=== PATIENT | male | born 1985 | race Caucasian/White ===

== ENCOUNTER 2017-11-20 19:12 | Emergency (ER) | payer OTHER ==
[~2017-11-20] VITALS: Ht 177.8 cm; Wt 120.2 kg
[~2017-11-20 19:12] MED LIST: AUGMENTIN 875 M1 TAB PO; BACTROBAN CREAM15 GM PO; NKHM; PRELONE5 MG/5 ML PO; ZANTAC150 MG PO; ZOFRAN4 MG PO
[2017-11-20 20:07] LABS: BASO % 0.2 % (0.0-1.0); EOS # 0.2 10*3/uL (0.0-0.4); EOS % 1.3 % (1.0-4.0); LYMPH % 16.6 % (27.0-41.0); MEAN CELL VOLUME 84.8 fl (80.0-94.0); MEAN CORPUSCULAR HGB 28.9 pg (27.0-31.0); MEAN PLATELET VOLUME 10.3 fl (9.6-12.3); MONO # 0.9 10*3/uL (0.1-1.0); MONO % 7.3 % (3.0-9.0); NEUT # 8.9 10*3/uL (2.3-7.9); NEUT % 74.2 % (47.0-73.0); PLATELET COUNT AUTOMATED 189 10*3/uL (130-400); RED BLOOD COUNT 5.54 10*6/uL (4.50-5.90); RED CELL DISTRI WIDTH 13.1 % (0-14.5)
[2017-11-20 20:16] LABS: BILIRUBIN NEGATIVE (NEGATIVE); BLOOD 3+ (NEGATIVE); CLARITY SL CLOUDY (CLEAR); COLOR YELLOW (YELLOW); GLUCOSE NEGATIVE (NEGATIVE); KETONE NEGATIVE (NEGATIVE); LEUKO ESTERASE NEGATIVE (NEGATIVE); NITRITE NEGATIVE (NEGATIVE); PH 5.5 (5.0-9.0); SPECIFIC GRAVITY >= 1.030 (1.005-1.030)
[2017-11-20 20:23] LABS: MUCOUS 1+; RBC 41-50 rbc/hpf (0-2)
[2017-11-20 20:23] LABS: ALBUMIN 4.1 gm/dl (3.1-4.5); ALKALINE PHOSPHATASE 90 U/L (45-117); BUN 21 mg/dl (7-24); CHLORIDE 106 mmol/L (98-107); CREATININE 1.37 mg/dL (0.70-1.30); POTASSIUM 3.3 mmol/L (3.5-5.1); SGOT/AST 17 IU/L (3-35); SGPT/ALT 25 U/L (12-78); SODIUM 142 mmol/L (136-145); TOTAL PROTEIN 7.9 gm/dL (6.4-8.2)
[2017-11-20] MEDS ORDERED: Zofran4 MG SL (23:06)
[2017-11-20] MEDS ORDERED: VICODIN 5-3001 EACH PO (23:06)
[2017-11-20] MEDS ORDERED: FLOMAX0.4 MG PO (23:06)
== END 2017-11-20 23:13 | disposition home or self-care (01) ==
LOC: ED 19:12
PROVIDERS: Nurse Practitioner Family
DX: N20.0 Calculus of kidney (principal); N23 Unspecified renal colic; Z90.89 Acquired absence of other organs; Z91.018 Allergy to other foods

== ENCOUNTER 2018-01-03 01:03 | Emergency (ER) | payer OTHER ==
[~2018-01-03] VITALS: Ht 177.8 cm; Wt 116.1 kg
[~2018-01-03 01:03] MED LIST changes: +FLOMAX0.4 MG PO; +VICODIN 5-3001 EACH PO; +Zofran4 MG SL
[2018-01-03 01:21] LABS: HEMATOCRIT 48.5 % (42.0-52.0); HEMOGLOBIN 17.1 g/dl (14.0-18.0); MEAN CELL VOLUME 82.9 fl (80.0-94.0); MEAN CORPUSCULAR HGB 29.2 pg (27.0-31.0); MEAN CORPUSCULAR HGB CONC 35.3 g/dl (33.0-37.0); MEAN PLATELET VOLUME 10.2 fl (9.6-12.3); PLATELET COUNT AUTOMATED 241 10*3/uL (130-400); RED BLOOD COUNT 5.85 10*6/uL (4.50-5.90); RED CELL DISTRI WIDTH 12.8 % (0-14.5); WHITE BLOOD COUNT 16.6 10*3/uL (4.8-10.8)
[2018-01-03 01:35] LABS: ALBUMIN 4.3 gm/dl (3.1-4.5); ALKALINE PHOSPHATASE 90 U/L (45-117); BUN 17 mg/dl (7-24); CHLORIDE 109 mmol/L (98-107); CREATININE 1.19 mg/dL (0.70-1.30); POTASSIUM 4.2 mmol/L (3.5-5.1); SGOT/AST 27 IU/L (3-35); SGPT/ALT 30 U/L (12-78); SODIUM 140 mmol/L (136-145)
[2018-01-03 01:40] LABS: PLATELET SUFFICIENCY NORMAL (NORMAL); TOTAL CELLS COUNTED 100 #CELLS
[2018-01-03 01:52] LABS: BILIRUBIN NEGATIVE (NEGATIVE); BLOOD 3+ (NEGATIVE); CLARITY SL CLOUDY (CLEAR); COLOR YELLOW (YELLOW); GLUCOSE NEGATIVE (NEGATIVE); KETONE NEGATIVE (NEGATIVE); LEUKO ESTERASE NEGATIVE (NEGATIVE); NITRITE NEGATIVE (NEGATIVE); PH 5.5 (5.0-9.0); SPECIFIC GRAVITY >= 1.030 (1.005-1.030)
[2018-01-03 02:00] LABS: BACTERIA 2+; CALCIUM OXALATE CRYSTALS 1+; MUCOUS 2+; RBC 51-100 rbc/hpf (0-2)
[2018-01-03] MEDS ORDERED: NORCO 5-325 TA1 EACH PO (02:49)
[2018-01-03] MEDS ORDERED: KETOROLAC10 MG PO (02:49)
== END 2018-01-03 03:29 | disposition home or self-care (01) ==
LOC: ED 01:03
PROVIDERS: Physician Assistant
DX: N20.1 Calculus of ureter (principal); Z91.018 Allergy to other foods; Z90.89 Acquired absence of other organs

== ENCOUNTER 2019-03-19 12:20 | Emergency (ER) | payer OTHER ==
[~2019-03-19] VITALS: Ht 177.8 cm; Wt 122.5 kg
[~2019-03-19 12:20] MED LIST changes: +KETOROLAC10 MG PO; +NORCO 5-325 TA1 EACH PO
[2019-03-19] MEDS ORDERED: TESSALON PERLE100 M1 PO (14:08)
[2019-03-19] MEDS ORDERED: CLARITIN10 MG PO (14:08)
[2019-03-19] MEDS ORDERED: PREDNISONE10 MG PO (14:08)
[2019-03-19] MEDS ORDERED: PROAIR HFA8.5 GM INH (14:08)
== END 2019-03-19 14:22 | disposition home or self-care (01) ==
LOC: ED 12:20
DX: J20.9 Acute bronchitis, unspecified (principal); F17.200 Nicotine dependence, unspecified, uncomplicated; Z91.018 Allergy to other foods; Z87.442 Personal history of urinary calculi; Z90.49 Acquired absence of other specified parts of digestive tract

== ENCOUNTER 2019-07-23 00:12 | Emergency (ER) | payer OTHER ==
[~2019-07-23] VITALS: Ht 180.3 cm; Wt 117.9 kg
[~2019-07-23 00:12] MED LIST changes: +CLARITIN10 MG PO; +PREDNISONE10 MG PO; +PROAIR HFA8.5 GM INH; +TESSALON PERLE100 M1 PO
[2019-07-23 00:56] LABS: BASO % 0.1 % (0.0-1.0); EOS # 0.1 10*3/uL (0.0-0.4); EOS % 1.1 % (1.0-4.0); LYMPH # 2.1 10*3/uL (1.3-4.4); MEAN CORPUSCULAR HGB 28.9 pg (27.0-31.0); MEAN CORPUSCULAR HGB CONC 34.8 g/dl (33.0-37.0); MEAN PLATELET VOLUME 11.2 fl (9.6-12.3); MONO # 0.6 10*3/uL (0.1-1.0); MONO % 6.9 % (3.0-9.0); NEUT # 5.5 10*3/uL (2.3-7.9); NEUT % 66.7 % (47.0-73.0); PLATELET COUNT AUTOMATED 180 10*3/uL (130-400); RED BLOOD COUNT 5.54 10*6/uL (4.50-5.90); RED CELL DISTRI WIDTH 11.9 % (0-14.5); WHITE BLOOD COUNT 8.3 10*3/uL (4.8-10.8)
[2019-07-23 01:14] LABS: ALBUMIN 3.8 gm/dl (3.1-4.5); ALKALINE PHOSPHATASE 154 U/L (45-117); BUN 13 mg/dl (7-24); CHLORIDE 96 mmol/L (98-107); CREATININE 1.14 mg/dL (0.70-1.30); POTASSIUM 4.6 mmol/L (3.5-5.1); SGOT/AST 18 IU/L (3-35); SGPT/ALT 46 U/L (12-78); SODIUM 131 mmol/L (136-145); TOTAL PROTEIN 7.4 gm/dL (6.4-8.2)
[2019-07-23 01:21] LABS: BILIRUBIN NEGATIVE (NEGATIVE); BLOOD TRACE-INTACT (NEGATIVE); CLARITY CLEAR (CLEAR); COLOR STRAW (YELLOW); GLUCOSE 2+ (NEGATIVE); KETONE NEGATIVE (NEGATIVE); LEUKO ESTERASE NEGATIVE (NEGATIVE); NITRITE NEGATIVE (NEGATIVE); SPECIFIC GRAVITY 1.005 (1.005-1.030); UROBILINOGEN 0.2 E.U./dl (0.2-1.0)
[2019-07-23 01:22] LABS: BACTERIA TRACE; EPITHELIAL CELLS 0-2; RBC 0-2 rbc/hpf (0-2); WBC 0-2 wbc/hpf (0-5)
== END 2019-07-23 03:52 | disposition left against medical advice (07) ==
LOC: ED 00:12
PROVIDERS: Physician Assistant
DX: E11.65 Type 2 diabetes mellitus with hyperglycemia (principal); E11.40 Type 2 diabetes mellitus with diabetic neuropathy, unspecified; H53.8 Other visual disturbances; F17.200 Nicotine dependence, unspecified, uncomplicated; Z79.899 Other long term (current) drug therapy; Z90.89 Acquired absence of other organs; Z87.442 Personal history of urinary calculi; Z53.29 Procedure and treatment not carried out because of patient's decision for other reasons

== ENCOUNTER 2019-07-23 23:00 | Inpatient (IN) | payer OTHER ==
[~2019-07-23] VITALS: Ht 177.8 cm; Wt 132.6 kg
[2019-07-23 23:12] VITALS: BP 141/66
[2019-07-23 23:58] LABS: BASO % 0.5 % (0.0-1.0); EOS # 0.1 10*3/uL (0.0-0.4); EOS % 1.2 % (1.0-4.0); HEMATOCRIT 41.3 % (42.0-52.0); LYMPH # 2.5 10*3/uL (1.3-4.4); LYMPH % 29.4 % (27.0-41.0); MEAN CELL VOLUME 84.5 fl (80.0-94.0); MEAN CORPUSCULAR HGB 29.7 pg (27.0-31.0); MEAN CORPUSCULAR HGB CONC 35.1 g/dl (33.0-37.0); MEAN PLATELET VOLUME 11.3 fl (9.6-12.3); MONO # 0.5 10*3/uL (0.1-1.0); NEUT # 5.3 10*3/uL (2.3-7.9); NEUT % 62.7 % (47.0-73.0); PLATELET COUNT AUTOMATED 137 10*3/uL (130-400); RED BLOOD COUNT 4.89 10*6/uL (4.50-5.90); RED CELL DISTRI WIDTH 12.1 % (0-14.5); WHITE BLOOD COUNT 8.5 10*3/uL (4.8-10.8)
[2019-07-24 00:11] LABS: ALKALINE PHOSPHATASE 164 U/L (45-117); BUN 11 mg/dl (7-24); CHLORIDE 100 mmol/L (98-107); CREATININE 1.11 mg/dL (0.70-1.30); LIPASE 155 U/L (73-393); POTASSIUM 4.5 mmol/L (3.5-5.1); SGOT/AST 18 IU/L (3-35); SGPT/ALT 39 U/L (12-78); SODIUM 131 mmol/L (136-145); TOTAL PROTEIN 6.2 gm/dL (6.4-8.2)
[2019-07-24 00:13] LABS: FREE T4 1.37 ng/dl (0.76-1.46)
[2019-07-24 00:22] LABS: BILIRUBIN NEGATIVE (NEGATIVE); BLOOD NEGATIVE (NEGATIVE); CLARITY CLEAR (CLEAR); COLOR STRAW (YELLOW); GLUCOSE 2+ (NEGATIVE); KETONE NEGATIVE (NEGATIVE); LEUKO ESTERASE NEGATIVE (NEGATIVE); NITRITE NEGATIVE (NEGATIVE); PH 6.5 (5.0-9.0); SPECIFIC GRAVITY 1.005 (1.005-1.030); UROBILINOGEN 0.2 E.U./dl (0.2-1.0)
[2019-07-24 00:23] LABS: BACTERIA TRACE; EPITHELIAL CELLS 0-2; RBC 0-2 rbc/hpf (0-2); WBC 0-2 wbc/hpf (0-5)
[2019-07-24 01:05] VITALS: BP 126/65
--- NOTE | 2019-07-24 01:05 | NUR ---
A 34, admitted to [facility], under the services of ELKIN Gonzalez DO with a diagnosis of HYPEROSMOLAR NON-KETOTIC STATE D/T DM, HYPERGLYCEMIA. Chief complaint is HYPERGLYCEMIA. Patient arrived via WHEELCHAIR from ER. Monitor applied. Initial assessment completed. Vital signs taken and recorded. ELKIN GONZALEZ DO notified of admission to the unit. Orders received. See assessment for past medical history, medications and allergies. Patient and/or family oriented to unit. [facility] visitation policy reviewed. Clothing/patient valuable form completed. CHELA RAPP
--- NOTE | 2019-07-24 01:15 | NUR ---
MED REC UP TO DATE PER PT RECALL. PT STATES HE TAKES NO MEDICATIONS.
--- NOTE | 2019-07-24 01:20 | NUR ---
NOTIFIED THAT 10 UNITS IV INSULIN GIVEN IN ER. BSG NOW 439. QUESTIONED WHETHER 10 UNITS IV INSULIN SHOULD BE GIVEN PER ORDER. PER , D/C 10 UNITS IV INSULIN ORDERED AND COVER WITH SLIDING SCALE.
--- NOTE | 2019-07-24 01:42 | NUR ---
14 UNITS INSULIN GIVEN PER SLIDING SCALE FOR BSG 439. PT EDUCATED ON S/S TO NOTIFY RN. VERBALIZES UNDERSTANDING. IVF INITIATED PER ORDER. WILL MONITOR. CALL LIGHT IN REACH.
[2019-07-24 01:45] VITALS: BP 126/65
[2019-07-24 02:11] LABS: BUN 11 mg/dl (7-24); CHLORIDE 103 mmol/L (98-107); CREATININE 0.93 mg/dL (0.70-1.30); POTASSIUM 4.1 mmol/L (3.5-5.1); SODIUM 134 mmol/L (136-145)
[2019-07-24 06:28] LABS: BASO % 0.2 % (0.0-1.0); EOS # 0.1 10*3/uL (0.0-0.4); EOS % 1.6 % (1.0-4.0); HEMATOCRIT 40.6 % (42.0-52.0); LYMPH # 3.2 10*3/uL (1.3-4.4); LYMPH % 35.7 % (27.0-41.0); MEAN CELL VOLUME 83.4 fl (80.0-94.0); MEAN CORPUSCULAR HGB 29.4 pg (27.0-31.0); MEAN CORPUSCULAR HGB CONC 35.2 g/dl (33.0-37.0); MEAN PLATELET VOLUME 11.5 fl (9.6-12.3); MONO # 0.6 10*3/uL (0.1-1.0); MONO % 6.1 % (3.0-9.0); NEUT % 55.7 % (47.0-73.0); PLATELET COUNT AUTOMATED 141 10*3/uL (130-400); RED BLOOD COUNT 4.87 10*6/uL (4.50-5.90); RED CELL DISTRI WIDTH 11.9 % (0-14.5)
[2019-07-24 06:34] LABS: BUN 11 mg/dl (7-24); CHLORIDE 105 mmol/L (98-107); CHOLESTEROL 127 mg/dL (<200); CREATININE 0.76 mg/dL (0.70-1.30); HDL CHOLESTEROL 21 mg/dl (40-60); LDL CHOLESTEROL 34 mg/dL (9-159); POTASSIUM 3.7 mmol/L (3.5-5.1); SODIUM 138 mmol/L (136-145); TRIGLYCERIDES 360 mg/dl (<150); VLDL CHOLESTEROL 72 mg/dL (6-40)
[2019-07-24 08:00] VITALS: BP 135/71
[2019-07-24 08:39] LABS: VITAMIN D, 25-HYDROXY 10.9 ng/mL (30-100)
--- NOTE | 2019-07-24 09:01 | NUR ---
DISCUSS WITH PATIENT LOVENOX, UNDERSTANDS MEDICATION AND REFUSES MEDICATION. PT WILL AMBULATE PRN AND DO ANKLE CIRCLES AND CALF PUMPS WHILE IN BED. PT STATES NO NEEDS AT THIS TIME. WILL CONTINUE TO MONITOR
[2019-07-24 12:00] VITALS: BP 140/83
--- NOTE | 2019-07-24 13:55 | NUR ---
PT SLEEPING, DECLINED DIABETIC EDUCATION AT THIS TIME
--- NOTE | 2019-07-24 14:52 | NUR ---
Nutritional Support Services Note: Pt newly diagnosed DM. Attempted to give pt diet consult, and he cannot stay awake. Diet copy left. Will follow up. Netta Sargent Rdn Ld
[2019-07-24 16:00] VITALS: BP 130/82
[2019-07-25] VITALS: BP 128/56
--- NOTE | 2019-07-25 00:18 | NUR ---
IVF INFUSION COMPLETE AT THIS TIME. WILL MONITOR.
--- NOTE | 2019-07-25 01:38 | NUR ---
MADE AWARE THAT PATIENT IS LEAVING AMA.
--- NOTE | 2019-07-25 01:47 | NUR ---
PATIENT LEFT AMA. IV SITE TO R HAND REMOVED AND DSD APPLIED. HAZARD WASTE HANDLER COLLECTED AND RETURNED TO JAVA SDET. SEARCH ENGINE OPTIMIZER NOTIFIED.
== END 2019-07-25 03:28 | disposition left against medical advice (07) | DRG 420 ==
LOC: ED 23:00 → EDHOLD 07-24 00:37 → 4NE 07-24 00:37
PROVIDERS: Emergency Medicine; Internal Medicine; ADMIT Internal Medicine
DX: E11.00 Type 2 diabetes mellitus with hyperosmolarity without nonketotic hyperglycemic-hyperosmolar coma (NKHHC) (principal); E11.65 Type 2 diabetes mellitus with hyperglycemia; Z53.29 Procedure and treatment not carried out because of patient's decision for other reasons; E66.01 Morbid (severe) obesity due to excess calories; Z87.891 Personal history of nicotine dependence; Z91.018 Allergy to other foods; Z82.49 Family history of ischemic heart disease and other diseases of the circulatory system; Z83.3 Family history of diabetes mellitus; Z87.442 Personal history of urinary calculi; Z71.6 Tobacco abuse counseling; Z68.41 Body mass index [BMI] 40.0-44.9, adult; E44.0 Moderate protein-calorie malnutrition

== ENCOUNTER 2019-08-05 09:44 | Emergency (ER) | payer OTHER ==
[~2019-08-05] VITALS: Ht 177.8 cm; Wt 128.4 kg
[2019-08-05 10:54] LABS: BASO % 0.3 % (0.0-1.0); EOS # 0.1 10*3/uL (0.0-0.4); EOS % 0.8 % (1.0-4.0); HEMATOCRIT 42.9 % (42.0-52.0); LYMPH # 2.1 10*3/uL (1.3-4.4); LYMPH % 23.3 % (27.0-41.0); MEAN CELL VOLUME 81.7 fl (80.0-94.0); MEAN CORPUSCULAR HGB 28.8 pg (27.0-31.0); MEAN CORPUSCULAR HGB CONC 35.2 g/dl (33.0-37.0); MEAN PLATELET VOLUME 11.2 fl (9.6-12.3); MONO # 0.9 10*3/uL (0.1-1.0); MONO % 10.3 % (3.0-9.0); NEUT # 5.7 10*3/uL (2.3-7.9); NEUT % 64.8 % (47.0-73.0); PLATELET COUNT AUTOMATED 145 10*3/uL (130-400); RED BLOOD COUNT 5.25 10*6/uL (4.50-5.90); RED CELL DISTRI WIDTH 12.9 % (0-14.5); WHITE BLOOD COUNT 8.9 10*3/uL (4.8-10.8)
[2019-08-05 11:10] LABS: ALBUMIN 3.4 gm/dl (3.1-4.5); ALKALINE PHOSPHATASE 119 U/L (45-117); BUN 5 mg/dl (7-24); CHLORIDE 101 mmol/L (98-107); CREATININE 0.74 mg/dL (0.70-1.30); POTASSIUM 3.3 mmol/L (3.5-5.1); SGOT/AST 10 IU/L (3-35); SGPT/ALT 28 U/L (12-78); SODIUM 135 mmol/L (136-145); TOTAL PROTEIN 6.9 gm/dL (6.4-8.2)
== END 2019-08-05 11:47 | disposition left against medical advice (07) ==
LOC: ED 09:44
PROVIDERS: Nurse Practitioner Family
DX: L03.116 Cellulitis of left lower limb (principal); L02.416 Cutaneous abscess of left lower limb; E11.65 Type 2 diabetes mellitus with hyperglycemia; F17.200 Nicotine dependence, unspecified, uncomplicated; Z53.29 Procedure and treatment not carried out because of patient's decision for other reasons; Z91.018 Allergy to other foods; Z90.89 Acquired absence of other organs; Z87.442 Personal history of urinary calculi

== ENCOUNTER 2019-08-29 04:40 | Inpatient (IN) | payer OTHER ==
[~2019-08-29] VITALS: Ht 177.8 cm; Wt 111.8 kg
[2019-08-29 04:49] VITALS: BP 160/97
[2019-08-29 05:16] LABS: BASO % 0.3 % (0.0-1.0); EOS % 0.3 % (1.0-4.0); HEMATOCRIT 51.3 % (42.0-52.0); LYMPH # 1.6 10*3/uL (1.3-4.4); LYMPH % 13.1 % (27.0-41.0); MEAN CELL VOLUME 82.9 fl (80.0-94.0); MEAN CORPUSCULAR HGB 29.4 pg (27.0-31.0); MEAN CORPUSCULAR HGB CONC 35.5 g/dl (33.0-37.0); MEAN PLATELET VOLUME 11.4 fl (9.6-12.3); MONO # 1.2 10*3/uL (0.1-1.0); MONO % 9.7 % (3.0-9.0); NEUT # 9.2 10*3/uL (2.3-7.9); PLATELET COUNT AUTOMATED 201 10*3/uL (130-400); RED BLOOD COUNT 6.19 10*6/uL (4.50-5.90); RED CELL DISTRI WIDTH 14.7 % (0-14.5); WHITE BLOOD COUNT 12.1 10*3/uL (4.8-10.8)
[2019-08-29 05:33] LABS: ALBUMIN 4.3 gm/dl (3.1-4.5); ALKALINE PHOSPHATASE 191 U/L (45-117); BUN 12 mg/dl (7-24); CHLORIDE 101 mmol/L (98-107); CREATININE 1.36 mg/dL (0.70-1.30); LIPASE 97 U/L (73-393); POTASSIUM 3.1 mmol/L (3.5-5.1); SGOT/AST 12 IU/L (3-35); SGPT/ALT 27 U/L (12-78); SODIUM 132 mmol/L (136-145); TOTAL PROTEIN 8.8 gm/dL (6.4-8.2)
[2019-08-29 05:59] LABS: ABG HCO3 5 mmol/l (22-26); ABG O2 SATURATION 99 % (95-97); ARTERIAL BLOOD GAS PH 7.233 (7.35-7.45); ARTERIAL BLOOD GAS PO2 119 mmHg (80-90)
[2019-08-29 06:04] LABS: ABG BASE EXCESS -21.6 mmol/L (-2.0-2.0)
[2019-08-29 06:05] LABS: ARTERIAL BLOOD GAS PCO2 < 14 mmHg (35-45)
[2019-08-29 06:13] LABS: COLOR YELLOW (YELLOW)
[2019-08-29 06:14] LABS: BILIRUBIN NEGATIVE (NEGATIVE); BLOOD 3+ (NEGATIVE); CLARITY CLEAR (CLEAR); GLUCOSE 3+ (NEGATIVE); KETONE 3+ (NEGATIVE); LEUKO ESTERASE NEGATIVE (NEGATIVE); MUCOUS 1+; NITRITE NEGATIVE (NEGATIVE); UROBILINOGEN 0.2 E.U./dl (0.2-1.0)
[2019-08-29 06:52] LABS: BUN 11 mg/dl (7-24); CHLORIDE 104 mmol/L (98-107); POTASSIUM 2.9 mmol/L (3.5-5.1); SODIUM 134 mmol/L (136-145)
[2019-08-29 07:15] VITALS: BP 144/92
[2019-08-29 07:42] VITALS: BP 162/94
[2019-08-29] MEDS ORDERED: ASPIRIN ADULT L81 M2 PO (10:37)
[2019-08-29] MEDS ORDERED: LIPITOR20 MG PO (10:37)
[2019-08-29] MEDS ORDERED: GLUCOPHAGE XR750 MG PO (10:37)
[2019-08-29] MEDS ORDERED: ACTOS30 M1 PO (10:38)
[2019-08-29 12:00] VITALS: BP 141/70
[2019-08-29 16:00] VITALS: BP 130/87
[2019-08-29 20:00] VITALS: BP 141/71
[2019-08-30] VITALS: BP 125/61
[2019-08-30 04:00] VITALS: BP 124/58
[2019-08-30 06:01] LABS: BUN 9 mg/dl (7-24); CHLORIDE 111 mmol/L (98-107); CREATININE 0.79 mg/dL (0.70-1.30); POTASSIUM 2.9 mmol/L (3.5-5.1); SODIUM 138 mmol/L (136-145)
[2019-08-30 06:47] LABS: BASO % 0.4 % (0.0-1.0); EOS # 0.1 10*3/uL (0.0-0.4); HEMATOCRIT 41.2 % (42.0-52.0); LYMPH % 37.4 % (27.0-41.0); MEAN CELL VOLUME 81.7 fl (80.0-94.0); MEAN CORPUSCULAR HGB 29.4 pg (27.0-31.0); MEAN CORPUSCULAR HGB CONC 35.9 g/dl (33.0-37.0); MEAN PLATELET VOLUME 12.4 fl (9.6-12.3); MONO # 0.5 10*3/uL (0.1-1.0); NEUT # 2.8 10*3/uL (2.3-7.9); NEUT % 50.8 % (47.0-73.0); RED BLOOD COUNT 5.04 10*6/uL (4.50-5.90); RED CELL DISTRI WIDTH 14.6 % (0-14.5); WHITE BLOOD COUNT 5.4 10*3/uL (4.8-10.8)
[2019-08-30 07:00] LABS: PLATELET COUNT AUTOMATED 117 10*3/uL (130-400)
[2019-08-30 08:00] VITALS: BP 132/60
[2019-08-30 12:03] VITALS: BP 148/82
[2019-08-30 12:17] LABS: BUN 8 mg/dl (7-24); CHLORIDE 108 mmol/L (98-107); CREATININE 0.98 mg/dL (0.70-1.30); POTASSIUM 3.7 mmol/L (3.5-5.1); SODIUM 133 mmol/L (136-145)
[2019-08-30 16:00] VITALS: BP 129/72
[2019-08-30 18:14] LABS: BUN 8 mg/dl (7-24); CHLORIDE 106 mmol/L (98-107); CREATININE 0.78 mg/dL (0.70-1.30); POTASSIUM 3.5 mmol/L (3.5-5.1); SODIUM 135 mmol/L (136-145)
[2019-08-30 20:00] VITALS: BP 134/83
[2019-08-31] VITALS: BP 149/74
[2019-08-31 04:30] VITALS: BP 133/60
[2019-08-31 05:56] LABS: BASO % 0.4 % (0.0-1.0); EOS # 0.1 10*3/uL (0.0-0.4); EOS % 1.1 % (1.0-4.0); HEMATOCRIT 39.3 % (42.0-52.0); LYMPH # 2.2 10*3/uL (1.3-4.4); LYMPH % 46.7 % (27.0-41.0); MEAN CELL VOLUME 81.7 fl (80.0-94.0); MEAN CORPUSCULAR HGB 29.3 pg (27.0-31.0); MEAN CORPUSCULAR HGB CONC 35.9 g/dl (33.0-37.0); MEAN PLATELET VOLUME 12.4 fl (9.6-12.3); MONO # 0.5 10*3/uL (0.1-1.0); MONO % 11.6 % (3.0-9.0); NEUT # 1.9 10*3/uL (2.3-7.9); PLATELET COUNT AUTOMATED 100 10*3/uL (130-400); RED BLOOD COUNT 4.81 10*6/uL (4.50-5.90); RED CELL DISTRI WIDTH 14.3 % (0-14.5); WHITE BLOOD COUNT 4.7 10*3/uL (4.8-10.8)
[2019-08-31 06:02] LABS: BUN 8 mg/dl (7-24); CHLORIDE 105 mmol/L (98-107); CREATININE 0.54 mg/dL (0.70-1.30); POTASSIUM 2.5 mmol/L (3.5-5.1); SODIUM 138 mmol/L (136-145)
[2019-08-31 08:00] VITALS: BP 151/79
[2019-08-31 12:00] VITALS: BP 132/85
[2019-08-31 12:39] LABS: BUN 8 mg/dl (7-24); CHLORIDE 101 mmol/L (98-107); CREATININE 0.75 mg/dL (0.70-1.30); POTASSIUM 3.3 mmol/L (3.5-5.1); SODIUM 133 mmol/L (136-145)
[2019-08-31 16:00] VITALS: BP 122/86
[2019-08-31 17:39] LABS: BACTERIA TRACE; BILIRUBIN NEGATIVE (NEGATIVE); BLOOD NEGATIVE (NEGATIVE); CLARITY CLEAR (CLEAR); COLOR YELLOW (YELLOW); GLUCOSE 3+ (NEGATIVE); KETONE NEGATIVE (NEGATIVE); LEUKO ESTERASE NEGATIVE (NEGATIVE); NITRITE NEGATIVE (NEGATIVE); RBC 0-2 rbc/hpf (0-2); SPECIFIC GRAVITY 1.005 (1.005-1.030); UROBILINOGEN 0.2 E.U./dl (0.2-1.0)
[2019-08-31 18:21] LABS: BUN 9 mg/dl (7-24); CHLORIDE 96 mmol/L (98-107); CREATININE 0.92 mg/dL (0.70-1.30); SODIUM 132 mmol/L (136-145)
[2019-08-31 18:33] LABS: POTASSIUM 4.5 mmol/L (3.5-5.1)
[2019-08-31 20:00] VITALS: BP 124/66
[2019-09-01] VITALS: BP 113/47
[2019-09-01 00:31] LABS: BUN 10 mg/dl (7-24); CHLORIDE 99 mmol/L (98-107); CREATININE 0.82 mg/dL (0.70-1.30); POTASSIUM 3.8 mmol/L (3.5-5.1); SODIUM 135 mmol/L (136-145)
[2019-09-01 06:07] LABS: BASO % 0.4 % (0.0-1.0); EOS # 0.1 10*3/uL (0.0-0.4); EOS % 1.4 % (1.0-4.0); LYMPH # 2.6 10*3/uL (1.3-4.4); LYMPH % 52.9 % (27.0-41.0); MEAN CELL VOLUME 83.9 fl (80.0-94.0); MEAN CORPUSCULAR HGB 29.8 pg (27.0-31.0); MEAN CORPUSCULAR HGB CONC 35.5 g/dl (33.0-37.0); MEAN PLATELET VOLUME 11.9 fl (9.6-12.3); MONO # 0.6 10*3/uL (0.1-1.0); MONO % 13.1 % (3.0-9.0); NEUT # 1.6 10*3/uL (2.3-7.9); PLATELET COUNT AUTOMATED 96 10*3/uL (130-400); RED BLOOD COUNT 4.53 10*6/uL (4.50-5.90); RED CELL DISTRI WIDTH 14.4 % (0-14.5); WHITE BLOOD COUNT 4.9 10*3/uL (4.8-10.8)
[2019-09-01 06:33] LABS: BUN 8 mg/dl (7-24); CHLORIDE 103 mmol/L (98-107); CREATININE 0.56 mg/dL (0.70-1.30); POTASSIUM 3.2 mmol/L (3.5-5.1); SODIUM 141 mmol/L (136-145)
[2019-09-01 08:00] VITALS: BP 127/70
[2019-09-01] MEDS ORDERED: K-TAB10 MEQ PO (08:16)
[2019-09-01] MEDS ORDERED: LISINOPRIL5 MG PO (08:16)
[2019-09-01] MEDS ORDERED: Lantus SC (08:16)
[2019-09-02 10:03] LABS: CREATININE,URINE 19.7 mg/dL (Not Estab.); MICRO ALBUMIN/CRE RATIO <15 (0-29)
== END 2019-09-01 09:45 | disposition home or self-care (01) | DRG 420 ==
LOC: ED 04:40 → 5E 06:11 → EDHOLD 06:11 → ICCU 06:11 → 5E 08-31 10:16
PROVIDERS: Emergency Medicine; Internal Medicine Nephrology; ADMIT Internal Medicine
DX: E11.10 Type 2 diabetes mellitus with ketoacidosis without coma (principal); E87.6 Hypokalemia; N17.9 Acute kidney failure, unspecified; E87.1 Hypo-osmolality and hyponatremia; E66.01 Morbid (severe) obesity due to excess calories; R03.0 Elevated blood-pressure reading, without diagnosis of hypertension; Z87.442 Personal history of urinary calculi; Z83.3 Family history of diabetes mellitus; Z91.018 Allergy to other foods; Z79.82 Long term (current) use of aspirin; Z79.899 Other long term (current) drug therapy; Z79.84 Long term (current) use of oral hypoglycemic drugs; Z68.35 Body mass index [BMI] 35.0-35.9, adult; E11.65 Type 2 diabetes mellitus with hyperglycemia

== ENCOUNTER 2019-10-27 19:44 | Inpatient (IN) | payer OTHER ==
[~2019-10-27] VITALS: Ht 177.8 cm; Wt 107.5 kg
[~2019-10-27 19:44] MED LIST changes: +ACTOS30 M1 PO; +ASPIRIN ADULT L81 M2 PO; +GLUCOPHAGE XR750 MG PO; +K-TAB10 MEQ PO; +LIPITOR20 MG PO; +LISINOPRIL5 MG PO; +Lantus SC
[2019-10-27 19:55] VITALS: BP 150/99
[2019-10-27 20:18] LABS: BASO % 0.3 % (0.0-1.0); EOS # 0.2 10*3/uL (0.0-0.4); EOS % 1.9 % (1.0-4.0); HEMATOCRIT 49.2 % (42.0-52.0); LYMPH # 2.1 10*3/uL (1.3-4.4); LYMPH % 20.8 % (27.0-41.0); MEAN CELL VOLUME 84.7 fl (80.0-94.0); MEAN CORPUSCULAR HGB 29.3 pg (27.0-31.0); MEAN CORPUSCULAR HGB CONC 34.6 g/dl (33.0-37.0); MONO # 0.9 10*3/uL (0.1-1.0); MONO % 8.9 % (3.0-9.0); NEUT # 6.7 10*3/uL (2.3-7.9); NEUT % 67.8 % (47.0-73.0); PLATELET COUNT AUTOMATED 215 10*3/uL (130-400); RED BLOOD COUNT 5.81 10*6/uL (4.50-5.90); RED CELL DISTRI WIDTH 12.6 % (0-14.5); WHITE BLOOD COUNT 9.9 10*3/uL (4.8-10.8)
[2019-10-27 20:33] LABS: ALBUMIN 3.5 gm/dl (3.1-4.5); ALKALINE PHOSPHATASE 198 U/L (45-117); BUN 7 mg/dl (7-24); CHLORIDE 99 mmol/L (98-107); CREATININE 0.89 mg/dL (0.70-1.30); POTASSIUM 4.7 mmol/L (3.5-5.1); SGOT/AST 26 IU/L (3-35); SGPT/ALT 19 U/L (12-78); SODIUM 131 mmol/L (136-145); TOTAL PROTEIN 8.2 gm/dL (6.4-8.2)
--- NOTE | 2019-10-27 20:42 | NUR ---
THIS RN ALONG WITH A GUARD WENT IN TO VIEW PTS TESTICLES. A MODERTATE SIZED ABSCESS WAS NOTED ALONG WITH REDNESS
[2019-10-27 22:18] LABS: BILIRUBIN NEGATIVE (NEGATIVE); CLARITY CLEAR (CLEAR); COLOR YELLOW (YELLOW); GLUCOSE 2+ (NEGATIVE); KETONE 3+ (NEGATIVE)
[2019-10-27 22:19] LABS: BLOOD TRACE-INTACT (NEGATIVE); LEUKO ESTERASE NEGATIVE (NEGATIVE); NITRITE NEGATIVE (NEGATIVE); SPECIFIC GRAVITY 1.015 (1.005-1.030); UROBILINOGEN 0.2 E.U./dl (0.2-1.0)
[2019-10-27 22:31] LABS: WBC 0-2 wbc/hpf (0-5)
[2019-10-27 22:50] VITALS: BP 127/78
--- NOTE | 2019-10-27 22:51 | NUR ---
PT RESFUED WOUND PHOTO OF SCROTUM
--- NOTE | 2019-10-27 23:11 | NUR ---
DR NOVA AWARE OF PTS INCREASED BGL OF 480. STATES TO KEEP INSULIN DRIP THE SAME BUT TO BOLUS FLUIDS
[2019-10-27 23:20] VITALS: BP 145/83
--- NOTE | 2019-10-27 23:20 | NUR ---
A 34 YEAR OLD MALE PATIENT, admitted to [facility], under the services of Dr. DEMI TORRES,[facility] with a diagnosis of DKA,ABSCESS ON SCROTUM Chief complaint is INCREASED BS AT HOME, 400S, ALSO ABSCESS ON SCROTUM Patient arrived via CART WITH RN from ER. Monitor applied. Initial assessment completed. Vital signs taken and recorded. See assessment for past medical history, medications and allergies. Patient and/or family oriented to unit. [facility] visitation policy reviewed. Clothing/patient valuable form completed. ANAY BAH
--- NOTE | 2019-10-27 23:25 | NUR ---
SPOKE WITH DR SIMMS ABOUT PATIENT BEING ADMITTED UNDER DR WHITTEN MISTAKENLY. AGREES TO ACCEPT PATIENT UNDER THE CARE OF HIMSELF. ADMISSION ORDERS RECIEVED AT THIS TIME. SEE ORDERS
[2019-10-28] MEDS ORDERED: LANTUS SOL100 UNIT/1 SC ×2 (00:23→13:06)
[2019-10-28] MEDS ORDERED: POTASSIUM CHLO10 MEQ PO (00:24)
[2019-10-28] MEDS ORDERED: VICTOZA 2-0.6 MG/0.1 SQ (00:25)
--- NOTE | 2019-10-28 00:27 | NUR ---
PATIENT CONTINUES TO REFUSE PHOTOGRAPH OF WOUND ON SCROTUM
[2019-10-28 00:29] LABS: ALKALINE PHOSPHATASE 172 U/L (45-117); BUN 6 mg/dl (7-24); CHLORIDE 106 mmol/L (98-107); CREATININE 0.83 mg/dL (0.70-1.30); SGOT/AST 8 IU/L (3-35); SGPT/ALT 13 U/L (12-78); SODIUM 136 mmol/L (136-145); TOTAL PROTEIN 6.9 gm/dL (6.4-8.2)
[2019-10-28 00:30] LABS: POTASSIUM 3.2 mmol/L (3.5-5.1)
--- NOTE | 2019-10-28 00:37 | NUR ---
SPOKE WITH LAB, STATE THEY ALREADY HAVE WOUND CULTURE SPECIMEN, AND THAT THEY NEED AN ORDER TO PROCESS IT. THIS RN PROCESSED ORDER
--- NOTE | 2019-10-28 01:23 | NUR ---
PATIENT CURRENTLY REFUSING DRESSING TO WOUND ON SCROTUM, STATES THAT WILL HURT WORSE
--- NOTE | 2019-10-28 03:05 | NUR ---
RN INTO PATIENTS ROOM TO OBTAIN 0300 BLOOD SUGAR. PATIENT ASKED RN TO UNHOOK INSULIN GTT NAD TRANSLATOR DEAF DO HE CAN GO INTO THE BATHROOM. RN INFORMED PATIENT OF THE POLICY REQUIRING HIM TO USE THE BEDSIDE COMMODE. 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
[2019-10-28 04:00] VITALS: BP 119/57
[2019-10-28 04:11] LABS: BASO % 0.2 % (0.0-1.0); EOS # 0.3 10*3/uL (0.0-0.4); HEMATOCRIT 42.6 % (42.0-52.0); LYMPH # 2.5 10*3/uL (1.3-4.4); LYMPH % 27.4 % (27.0-41.0); MEAN CELL VOLUME 83.9 fl (80.0-94.0); MEAN CORPUSCULAR HGB 29.5 pg (27.0-31.0); MEAN CORPUSCULAR HGB CONC 35.2 g/dl (33.0-37.0); MEAN PLATELET VOLUME 10.3 fl (9.6-12.3); MONO # 0.8 10*3/uL (0.1-1.0); MONO % 8.6 % (3.0-9.0); NEUT # 5.5 10*3/uL (2.3-7.9); NEUT % 60.4 % (47.0-73.0); PLATELET COUNT AUTOMATED 188 10*3/uL (130-400); RED BLOOD COUNT 5.08 10*6/uL (4.50-5.90); RED CELL DISTRI WIDTH 12.5 % (0-14.5); WHITE BLOOD COUNT 9.1 10*3/uL (4.8-10.8)
[2019-10-28 04:27] LABS: ALBUMIN 3.1 gm/dl (3.1-4.5); ALKALINE PHOSPHATASE 164 U/L (45-117); BUN 8 mg/dl (7-24); CHLORIDE 107 mmol/L (98-107); POTASSIUM 3.2 mmol/L (3.5-5.1); SGOT/AST 5 IU/L (3-35); SGPT/ALT 13 U/L (12-78); SODIUM 136 mmol/L (136-145); TOTAL PROTEIN 6.6 gm/dL (6.4-8.2)
--- NOTE | 2019-10-28 04:50 | NUR ---
PRN KDUR GIVEN AT THIS TIME, POTASSIUM LEVEL ON 399 CMP WAS 3.2. GIVEN PER PROTOCOL.
--- NOTE | 2019-10-28 06:26 | NUR ---
ATTEMPTED TO CALL CONSULT TO DR GAMING, NO ANSWER, WILL REATTEMPT IF CALL IS NOT RETURNED
--- NOTE | 2019-10-28 07:05 | NUR ---
DR GAMING CELL PHONE CALLED AGAIN, NO ANSWER. LEFT MESSAGE INSTRUCTING TO CALL ICU BACK REGARDING CONSULT
[2019-10-28 08:00] VITALS: BP 126/87
--- NOTE | 2019-10-28 08:06 | NUR ---
DR WAN IN TO SEE PT. HE EXAMINED PT AND STATED HE WOULD I/D ABCESS AT BEDSIDE. PT REFUSED PICTURES PRE-DEBRIDEMENT PICTURES. 2MG IV MORPHINE ORDERED PRIOR TO DEBRIDEMENT.
--- NOTE | 2019-10-28 08:22 | NUR ---
IV MORPHINE GIVEN TO PT PER ORDER PRIOR TO PROCEDURE.
[2019-10-28 08:25] LABS: ALKALINE PHOSPHATASE 139 U/L (45-117); BUN 8 mg/dl (7-24); CHLORIDE 112 mmol/L (98-107); POTASSIUM 2.9 mmol/L (3.5-5.1); SGOT/AST 8 IU/L (3-35); SGPT/ALT 13 U/L (12-78); SODIUM 140 mmol/L (136-145); TOTAL PROTEIN 6.5 gm/dL (6.4-8.2)
--- NOTE | 2019-10-28 08:42 | NUR ---
DEBRIDEMENT OF SCROTAL ABCESS COMPLETED. PT TOLERATED PROCEDURE WELL. PT REFUSED POST-DEBRIDEMENT PICTURES.
[2019-10-28 12:00] VITALS: BP 128/71
[2019-10-28 12:10] LABS: ALBUMIN 2.9 gm/dl (3.1-4.5); ALKALINE PHOSPHATASE 144 U/L (45-117); BUN 8 mg/dl (7-24); CHLORIDE 106 mmol/L (98-107); CREATININE 0.67 mg/dL (0.70-1.30); POTASSIUM 3.8 mmol/L (3.5-5.1); SGOT/AST 9 IU/L (3-35); SGPT/ALT 14 U/L (12-78); SODIUM 134 mmol/L (136-145); TOTAL PROTEIN 6.6 gm/dL (6.4-8.2)
--- NOTE | 2019-10-28 12:37 | NUR ---
MEDICATED PT PER PRN ORDER WITH MORPHINE FOR C/O SCROTAL PAIN THAT RATES 5/10 ON PAIN SCALE.
--- NOTE | 2019-10-28 13:10 | NUR ---
DR SIMMS UPDATED ON PT'S LAB RESULTS AND CONDITION. NEW ORDERS RECEIVED.
--- NOTE | 2019-10-28 13:20 | NUR ---
PT STATES RELIEF OF PAIN WITH EARLIER MORPHINE.
[2019-10-28 16:00] VITALS: BP 116/59
--- NOTE | 2019-10-28 16:00 | NUR ---
BLOOD SUGAR 267. INSULIN GTT INCREASED TO 11 UNITS/HR.
[2019-10-28 16:25] LABS: ALBUMIN 2.9 gm/dl (3.1-4.5); ALKALINE PHOSPHATASE 159 U/L (45-117); BUN 8 mg/dl (7-24); CHLORIDE 107 mmol/L (98-107); CREATININE 0.63 mg/dL (0.70-1.30); POTASSIUM 4.4 mmol/L (3.5-5.1); SGOT/AST 16 IU/L (3-35); SGPT/ALT 17 U/L (12-78); SODIUM 135 mmol/L (136-145); TOTAL PROTEIN 6.7 gm/dL (6.4-8.2)
--- NOTE | 2019-10-28 17:00 | NUR ---
BLOOD SUGAR 227. EATING DINNER. INSULIN GTT INCREASED TO 12 UNITS/HR
--- NOTE | 2019-10-28 18:06 | NUR ---
MEDICATED WITH MORPHINE PER PT REQUEST FOR C/O PAIN AT INCISION DRAINAGE SITE. INSULIN DRIP INCREASED TO 13 UNITS/HR BLOOD SUGAR REMAINS GREATER THAN 250
--- NOTE | 2019-10-28 18:45 | NUR ---
VOICES THAT MORPHINE WAS EFFECTIVE FOR PAIN
--- NOTE | 2019-10-28 19:15 | NUR ---
DR. SIMMS NOTIFIED THAT BLOOD SUGAR 344. INSULIN GTT INCREASED TO 14 UNITS/HR. ORDERS RECEIVED TO GIVE LANTUS 50 UNITS NOW AND TO CONTINUE BLOOD SUGAR CHECKS Q 1 HRS AND ONLY COVER EVERY 4 HRS WITH SLIDING SCALE.
[2019-10-28 20:00] VITALS: BP 113/61
[2019-10-28 20:27] LABS: ALBUMIN 2.8 gm/dl (3.1-4.5); ALKALINE PHOSPHATASE 144 U/L (45-117); BUN 10 mg/dl (7-24); CHLORIDE 107 mmol/L (98-107); CREATININE 0.69 mg/dL (0.70-1.30); SGOT/AST 10 IU/L (3-35); SGPT/ALT 15 U/L (12-78); SODIUM 135 mmol/L (136-145); TOTAL PROTEIN 6.2 gm/dL (6.4-8.2)
--- NOTE | 2019-10-28 22:34 | NUR ---
DR MALDONADO NOTIFIED OF BS 169 AND INSULIN GTT TURNED OFF. ORDER TO CONTINUE WITH BS Q4H WITH SLIDING SCALE.
[2019-10-29] VITALS: BP 125/81
[2019-10-29 04:00] VITALS: BP 125/72
[2019-10-29 05:08] LABS: ALKALINE PHOSPHATASE 121 U/L (45-117); BUN 9 mg/dl (7-24); CHLORIDE 107 mmol/L (98-107); CREATININE 0.57 mg/dL (0.70-1.30); POTASSIUM 3.5 mmol/L (3.5-5.1); SGOT/AST 12 IU/L (3-35); SGPT/ALT 13 U/L (12-78); SODIUM 139 mmol/L (136-145); TOTAL PROTEIN 6.2 gm/dL (6.4-8.2)
[2019-10-29 08:00] VITALS: BP 131/74
[2019-10-29 08:36] LABS: ALBUMIN 2.7 gm/dl (3.1-4.5); ALKALINE PHOSPHATASE 110 U/L (45-117); BUN 8 mg/dl (7-24); CHLORIDE 109 mmol/L (98-107); CREATININE 0.52 mg/dL (0.70-1.30); POTASSIUM 3.2 mmol/L (3.5-5.1); SGOT/AST 9 IU/L (3-35); SGPT/ALT 13 U/L (12-78); SODIUM 142 mmol/L (136-145); TOTAL PROTEIN 5.8 gm/dL (6.4-8.2)
--- NOTE | 2019-10-29 08:37 | NUR ---
MEDICATED PT PER PRN ORDER WITH MORPHINE FOR T'S C/O SURGICAL SITE PAIN THAT RATES 6/10 ON PAIN SCALE.
--- NOTE | 2019-10-29 08:55 | NUR ---
PT STATES RELIEF OF PAIN WITH EARLIER MORPHINE. PT STATES PAIN IS NOW 1/10 ON PAIN SCALE.
--- NOTE | 2019-10-29 11:30 | NUR ---
DR WAN IN TO SEE PT. HE CHANGED PACKING AND DRESSING TO SURGICAL SITE. HE ANSWERED PT'S QUESTIONS.
[2019-10-29 12:00] VITALS: BP 118/58
--- NOTE | 2019-10-29 12:56 | NUR ---
MEDICATED PT PER PRN ORDER WITH MORPHINE FOR C/O SURGICAL SITE PAIN THAT RATES 8/10 ON PAIN SCALE.
[2019-10-29 13:14] LABS: ALBUMIN 2.6 gm/dl (3.1-4.5); ALKALINE PHOSPHATASE 119 U/L (45-117); BUN 9 mg/dl (7-24); CHLORIDE 103 mmol/L (98-107); CREATININE 0.81 mg/dL (0.70-1.30); POTASSIUM 4.1 mmol/L (3.5-5.1); SGOT/AST 14 IU/L (3-35); SGPT/ALT 16 U/L (12-78); SODIUM 135 mmol/L (136-145); TOTAL PROTEIN 5.8 gm/dL (6.4-8.2)
--- NOTE | 2019-10-29 13:20 | NUR ---
PT STATES SOME RELIEF OF PAIN WITH EARLIER MORPHINE.
--- NOTE | 2019-10-29 13:51 | NUR ---
15 UNITS REGULAR INSULIN SQ AND 5 UNTIS REGULAR INSULIN IV GIVEN PER ORDER FOR GLUCOSE OF 524. WILL CONTINUE TO MONITOR PT.
--- NOTE | 2019-10-29 15:03 | NUR ---
DR SIMMS IN TO SEE PT. UPDATED HIM ON PT'S CONDITION AND PLAN OF CARE. NEW ORDERS RECEIVED.
[2019-10-29 16:00] VITALS: BP 127/69
[2019-10-29 16:52] LABS: ALBUMIN 2.7 gm/dl (3.1-4.5); ALKALINE PHOSPHATASE 120 U/L (45-117); BUN 9 mg/dl (7-24); CHLORIDE 108 mmol/L (98-107); CREATININE 0.61 mg/dL (0.70-1.30); POTASSIUM 3.6 mmol/L (3.5-5.1); SGOT/AST 12 IU/L (3-35); SGPT/ALT 16 U/L (12-78); SODIUM 142 mmol/L (136-145); TOTAL PROTEIN 5.9 gm/dL (6.4-8.2)
--- NOTE | 2019-10-29 18:05 | NUR ---
MEDICATED PT PER PRN ORDER WITH IV TORADOL FOR C/O SURGICAL PAIN THAT RATES 8/10 ON PAIN SCALE.
--- NOTE | 2019-10-29 19:00 | NUR ---
PT STATES LITTLE RELEIF OF PAIN WITH EARLIER TORADOL.
--- NOTE | 2019-10-29 19:52 | NUR ---
RN IN TO ASSESS PATIENT, PATIENT C/O 8/10 PAIN TO SURGICAL SITE AND STATES THAT EARLIER TORADOL DID NOT HELP. STATES IT MADE HIM FEEL NAUSEOUS WITH NO PAIN RELIEF. PRN MORPHINE GIVEN AT THIS TIME. PATIENT ALSO PROVIDED WITH FRESH ICE CHIPS PER HIS REQUEST. RN WILL MONITOR FOR EFFECTIVENESS OF PRN MEDICATION.
[2019-10-29 20:00] VITALS: BP 131/81
[2019-10-29 20:18] LABS: ALBUMIN 2.8 gm/dl (3.1-4.5); ALKALINE PHOSPHATASE 111 U/L (45-117); BUN 11 mg/dl (7-24); CHLORIDE 106 mmol/L (98-107); CREATININE 0.57 mg/dL (0.70-1.30); POTASSIUM 3.7 mmol/L (3.5-5.1); SGOT/AST 12 IU/L (3-35); SGPT/ALT 16 U/L (12-78); SODIUM 140 mmol/L (136-145)
--- NOTE | 2019-10-29 20:52 | NUR ---
PATIENT STATES EARLIER PAIN MEDICATION REDUCED PAIN A LITTLE
--- NOTE | 2019-10-29 23:37 | NUR ---
PATIENT MEDICATED WITH MORPHINE PER DRS ORDERS FOR COMPLAITNS OF PAIN TO SCROTUM FROM I+D. RN WILL MONITOR FOR RELIEF OF SYMPTOMS
[2019-10-30] VITALS: BP 140/84
--- NOTE | 2019-10-30 00:37 | NUR ---
PATIENT RESTING WITH EYES CLOSED AT THIS TIME, EARLIER PAIN MEDICATION SEEMS TO HAVE BEEN EFFECTIVE
--- NOTE | 2019-10-30 04:42 | NUR ---
MORPHINE PRN PER DRS ORDERS GIVEN AT THIS TIME, FOR COMPLAINTS OF PAIN FROM I+D, RN WILL MONITOR FOR RELIEF
[2019-10-30 05:41] LABS: ALBUMIN 2.7 gm/dl (3.1-4.5); ALKALINE PHOSPHATASE 103 U/L (45-117); BUN 13 mg/dl (7-24); CHLORIDE 109 mmol/L (98-107); CREATININE 0.57 mg/dL (0.70-1.30); POTASSIUM 3.3 mmol/L (3.5-5.1); SGOT/AST 13 IU/L (3-35); SGPT/ALT 16 U/L (12-78); SODIUM 142 mmol/L (136-145); TOTAL PROTEIN 5.8 gm/dL (6.4-8.2)
[2019-10-30 05:56] LABS: BASO % 0.5 % (0.0-1.0); EOS # 0.1 10*3/uL (0.0-0.4); HEMATOCRIT 40.2 % (42.0-52.0); LYMPH # 2.9 10*3/uL (1.3-4.4); LYMPH % 49.5 % (27.0-41.0); MEAN CELL VOLUME 86.8 fl (80.0-94.0); MEAN CORPUSCULAR HGB 29.8 pg (27.0-31.0); MEAN CORPUSCULAR HGB CONC 34.3 g/dl (33.0-37.0); MEAN PLATELET VOLUME 11.2 fl (9.6-12.3); MONO # 0.7 10*3/uL (0.1-1.0); MONO % 12.3 % (3.0-9.0); NEUT # 2.1 10*3/uL (2.3-7.9); PLATELET COUNT AUTOMATED 156 10*3/uL (130-400); RED BLOOD COUNT 4.63 10*6/uL (4.50-5.90); RED CELL DISTRI WIDTH 13.1 % (0-14.5); WHITE BLOOD COUNT 5.9 10*3/uL (4.8-10.8)
--- NOTE | 2019-10-30 06:57 | NUR ---
BREAKFAST ORDERED FOR PATIENT AT THIS TIME, HAM,CHEESE,AND ONION OMELET, BREAKFAST POTATOES,OATMEAL,PARTNER CCO SALAD, SAUSAGE HENRIETTA AND 2 POPS. PATIENT COUNSELLED REGARDING MAKING BETTER DIET CHOICES BY THIS RN AND PATIENT STATES THAT HE IS HUNGRY THIS MORNING AND HIS LAST BLOOD SUGAR WAS "NOT THAT HIGH"
--- NOTE | 2019-10-30 07:30 | NUR ---
ASKING FOR MORPHINE ADVISED THAT IT IS NOT DUE TILL 840 REFUSES TORADOL
[2019-10-30 08:00] VITALS: BP 111/77
--- NOTE | 2019-10-30 08:38 | NUR ---
MORPHONE FOR UNBEARABLE PAIN FROM SURGICAL SITE
--- NOTE | 2019-10-30 09:00 | NUR ---
Honey Liquefier in to talk to patient. Patient states lives at home alone with his family checking in on him. There are 10 steps in the home. Physician: Dr. Lui Schroeder [facility]: [facility] Home health services: none Patient's level of ADLs: INDEPENDENT Patient has working utilities: yes DME: none Follow-up physician's appointment after d/c: he prefers to make his own follow up appt after discharge Does patient want to access PORTAL?: no Discharge plan discussed with patient. He lives at home alone with his family checking in on him. He is independent in his ADLs and ambulation. Discussed home health care services and he declines. CM will continue to follow for any discharge planning needs. When medically stable he will be discharged to home. He states his girlfriend will provide transportation on discharge. NIKOS TOMAS
--- NOTE | 2019-10-30 12:24 | NUR ---
MORPHINE FOR SURGICAL UNBEARABLE PAIN
[2019-10-30] MEDS ORDERED: Lantus SC (13:51)
[2019-10-30] MEDS ORDERED: VICTOZA 2-0.6 MG/0.1 SC (13:51)
--- NOTE | 2019-10-30 13:51 | NUR ---
PT REFUSES DC WOUND PICTURES, "IF IT WERE ONLY ANYWHERE ELSE"
[2019-10-30] MEDS ORDERED: AUGMENTIN 875-875 MG PO (14:03)
[2019-10-30] MEDS ORDERED: PERCOCET 7.5-31 EACH PO (14:03)
--- NOTE | 2019-10-30 14:20 | NUR ---
DC TO HOME PT VERBALIZED GOOD UNDERSTANDING OF HOME MEDS, DIABETIC DIET AND WILL CALL WOUND CARE TOMORROW AM TO MAKE A FOLLOW UP ROSA
== END 2019-10-30 14:20 | disposition home or self-care (01) | DRG 501 ==
LOC: ED 19:44 → EDHOLD 21:48 → ICCU 21:48
PROVIDERS: Emergency Medicine Emergency Medical Services; ADMIT Internal Medicine
PROC: 0JBC0ZZ Excision of Pelvic Region Subcutaneous Tissue and Fascia, Open Approach (ICD-10-PCS; principal; 2019-10-28)
DX: N49.2 Inflammatory disorders of scrotum (principal); E10.10 Type 1 diabetes mellitus with ketoacidosis without coma; Z68.34 Body mass index [BMI] 34.0-34.9, adult; E87.6 Hypokalemia; F17.200 Nicotine dependence, unspecified, uncomplicated; F10.20 Alcohol dependence, uncomplicated; Y90.9 Presence of alcohol in blood, level not specified; E66.9 Obesity, unspecified; B95.4 Other streptococcus as the cause of diseases classified elsewhere; E43 Unspecified severe protein-calorie malnutrition; Z79.82 Long term (current) use of aspirin; Z79.4 Long term (current) use of insulin; Z79.899 Other long term (current) drug therapy; Z83.3 Family history of diabetes mellitus; Z91.018 Allergy to other foods

== ENCOUNTER 2019-11-10 04:08 | Emergency (ER) | payer OTHER ==
[~2019-11-10] VITALS: Ht 177.8 cm; Wt 107.0 kg
[~2019-11-10 04:08] MED LIST changes: +AUGMENTIN 875-875 MG PO; +LANTUS SOL100 UNIT/1 SC; +PERCOCET 7.5-31 EACH PO; +POTASSIUM CHLO10 MEQ PO; +VICTOZA 2-0.6 MG/0.1 SC; +VICTOZA 2-0.6 MG/0.1 SQ
[2019-11-10 05:10] LABS: URINE AMPHETAMINES < 1000 (1000ng/ml); URINE BARBITURATES < 200 (200ng/ml); URINE BENZODIAZEPINES < 200 (200ng/ml); URINE CANNABINOIDS (THC) < 50 (50ng/ml); URINE COCAINE < 300 (300ng/ml); URINE METHADONE < 300 (300ng/ml); URINE OPIATES < 300 (300ng/ml)
[2019-11-10 05:16] LABS: URINE PHENCYCLIDINE < 25 (25ng/ml)
[2019-11-10 05:18] LABS: ALBUMIN 3.3 gm/dl (3.1-4.5); ALKALINE PHOSPHATASE 179 U/L (45-117); BUN 5 mg/dl (7-24); CHLORIDE 98 mmol/L (98-107); CREATININE 0.85 mg/dL (0.70-1.30); POTASSIUM 3.8 mmol/L (3.5-5.1); SGOT/AST 18 IU/L (3-35); SGPT/ALT 26 U/L (12-78); SODIUM 132 mmol/L (136-145); TOTAL PROTEIN 7.2 gm/dL (6.4-8.2)
[2019-11-10 05:19] LABS: BILIRUBIN NEGATIVE (NEGATIVE); BLOOD NEGATIVE (NEGATIVE); CLARITY CLEAR (CLEAR); COLOR YELLOW (YELLOW); GLUCOSE 3+ (NEGATIVE); KETONE NEGATIVE (NEGATIVE); LEUKO ESTERASE NEGATIVE (NEGATIVE); NITRITE NEGATIVE (NEGATIVE); SPECIFIC GRAVITY 1.005 (1.005-1.030); UROBILINOGEN 0.2 E.U./dl (0.2-1.0)
[2019-11-10 05:38] LABS: RBC 0-2 rbc/hpf (0-2)
[2019-11-10 05:56] LABS: BASO % 0.5 % (0.0-1.0); EOS # 0.3 10*3/uL (0.0-0.4); EOS % 4.1 % (1.0-4.0); HEMATOCRIT 44.6 % (42.0-52.0); LYMPH # 2.5 10*3/uL (1.3-4.4); LYMPH % 39.8 % (27.0-41.0); MEAN CELL VOLUME 85.1 fl (80.0-94.0); MEAN CORPUSCULAR HGB 29.6 pg (27.0-31.0); MEAN CORPUSCULAR HGB CONC 34.8 g/dl (33.0-37.0); MONO # 0.6 10*3/uL (0.1-1.0); MONO % 9.1 % (3.0-9.0); NEUT # 2.8 10*3/uL (2.3-7.9); NEUT % 45.9 % (47.0-73.0); PLATELET COUNT AUTOMATED 178 10*3/uL (130-400); RED BLOOD COUNT 5.24 10*6/uL (4.50-5.90); RED CELL DISTRI WIDTH 12.8 % (0-14.5); WHITE BLOOD COUNT 6.2 10*3/uL (4.8-10.8)
[2019-11-10 07:03] LABS: BUN 5 mg/dl (7-24); CHLORIDE 103 mmol/L (98-107); CREATININE 0.81 mg/dL (0.70-1.30); POTASSIUM 3.8 mmol/L (3.5-5.1); SODIUM 133 mmol/L (136-145)
[2019-11-10] MEDS ORDERED: ANTIFUNGAL113 GM T (08:00)
== END 2019-11-10 09:00 | disposition home or self-care (01) ==
LOC: ED 04:08
PROVIDERS: Emergency Medicine
DX: B37.42 Candidal balanitis (principal); E11.9 Type 2 diabetes mellitus without complications; Z91.018 Allergy to other foods; Z79.899 Other long term (current) drug therapy; Z79.82 Long term (current) use of aspirin; Z79.4 Long term (current) use of insulin

== ENCOUNTER 2020-05-20 12:20 | Observation (INO) | payer OTHER ==
[~2020-05-20] VITALS: Ht 177.8 cm; Wt 108.0 kg
[~2020-05-20 12:20] MED LIST changes: +ANTIFUNGAL113 GM T
[2020-05-20 12:26] VITALS: BP 140/100
[2020-05-20 13:34] LABS: ACT PARTIAL THROMBO TIME 25.7 SECONDS (20.0-32.1)
[2020-05-20 13:39] LABS: ALBUMIN 3.6 gm/dl (3.1-4.5); ALKALINE PHOSPHATASE 158 U/L (45-117); BUN 14 mg/dl (7-24); CHLORIDE 98 mmol/L (98-107); LIPASE 111 U/L (73-393); SGOT/AST 6 IU/L (3-35); SGPT/ALT 21 U/L (12-78); SODIUM 132 mmol/L (136-145); TOTAL PROTEIN 7.2 gm/dL (6.4-8.2)
[2020-05-20 13:57] LABS: TROPONIN I < 0.015 ng/ml (<0.045)
[2020-05-20 13:59] LABS: BASO % 0.3 % (0.0-1.0); EOS # 0.3 10*3/uL (0.0-0.4); EOS % 2.4 % (1.0-4.0); HEMATOCRIT 47.9 % (42.0-52.0); MEAN CELL VOLUME 81.2 fl (80.0-94.0); MEAN CORPUSCULAR HGB 28.6 pg (27.0-31.0); MEAN CORPUSCULAR HGB CONC 35.3 g/dl (33.0-37.0); MONO # 0.7 10*3/uL (0.1-1.0); MONO % 6.2 % (3.0-9.0); NEUT # 6.6 10*3/uL (2.3-7.9); NEUT % 56.8 % (47.0-73.0); PLATELET COUNT AUTOMATED 248 10*3/uL (130-400); RED CELL DISTRI WIDTH 12.4 % (0-14.5); WHITE BLOOD COUNT 11.7 10*3/uL (4.8-10.8)
[2020-05-20 14:02] LABS: BILIRUBIN Negative (Negative); BLOOD Negative (Negative); CLARITY Clear (Clear); COLOR Yellow (Yellow); GLUCOSE 3+ (Negative); KETONE Negative (Negative); LEUKO ESTERASE Negative (Negative); NITRITE Negative (Negative); SPECIFIC GRAVITY >= 1.030 (1.001-1.030); UROBILINOGEN 0.2 E.U./dl (0.0-1.0)
[2020-05-20 14:28] LABS: BACTERIA TRACE; EPITHELIAL CELLS 0-2; MUCOUS 1+; RBC 0-2 rbc/hpf (0-2); WBC 0-2 wbc/hpf (0-5)
[2020-05-20 16:27] VITALS: BP 119/71
[2020-05-20] MEDS ORDERED: LANTUS SOL100 UNIT/1 SC (16:58)
[2020-05-20] MEDS ORDERED: VICTOZA 2-0.6 MG/0.1 SC (17:00)
[2020-05-20] MEDS ORDERED: ZOSYN 3.373.375 GM/1 IV (17:21)
[2020-05-20 20:00] VITALS: BP 119/61
[2020-05-21] VITALS: BP 108/56
[2020-05-21 08:00] VITALS: BP 126/81
[2020-05-21] MEDS ORDERED: AUGMENTIN 875-875 MG PO (08:07)
== END 2020-05-21 08:47 | disposition home or self-care (01) ==
LOC: ED 12:20 → 4E 14:51 → EDHOLD 14:51 → 4E 15:49
PROVIDERS: Emergency Medicine; ADMIT Internal Medicine; ATTEND Internal Medicine
DX: E87.2 Acidosis (principal); E10.65 Type 1 diabetes mellitus with hyperglycemia; E87.1 Hypo-osmolality and hyponatremia; N49.2 Inflammatory disorders of scrotum; E86.0 Dehydration; Z79.4 Long term (current) use of insulin; Z79.899 Other long term (current) drug therapy

== ENCOUNTER 2020-07-06 19:12 | Emergency (ER) | payer OTHER ==
[~2020-07-06] VITALS: Ht 177.8 cm; Wt 98.4 kg
[~2020-07-06 19:12] MED LIST changes: +ZOSYN 3.373.375 GM/1 IV
[2020-07-06 20:01] LABS: BASO % 0.2 % (0.0-1.0); EOS # 0.1 10*3/uL (0.0-0.4); EOS % 0.6 % (1.0-4.0); HEMATOCRIT 43.6 % (42.0-52.0); LYMPH # 2.6 10*3/uL (1.3-4.4); LYMPH % 32.5 % (27.0-41.0); MEAN CELL VOLUME 82.9 fl (80.0-94.0); MEAN CORPUSCULAR HGB 28.9 pg (27.0-31.0); MEAN CORPUSCULAR HGB CONC 34.9 g/dl (33.0-37.0); MEAN PLATELET VOLUME 11.2 fl (9.6-12.3); MONO # 0.4 10*3/uL (0.1-1.0); MONO % 5.3 % (3.0-9.0); NEUT # 4.9 10*3/uL (2.3-7.9); PLATELET COUNT AUTOMATED 213 10*3/uL (130-400); RED BLOOD COUNT 5.26 10*6/uL (4.50-5.90); RED CELL DISTRI WIDTH 12.2 % (0-14.5); WHITE BLOOD COUNT 8.1 10*3/uL (4.8-10.8)
[2020-07-06 20:17] LABS: ALBUMIN 3.6 gm/dl (3.1-4.5); ALKALINE PHOSPHATASE 101 U/L (45-117); BUN 12 mg/dl (7-24); CHLORIDE 99 mmol/L (98-107); CREATININE 0.89 mg/dL (0.70-1.30); POTASSIUM 4.6 mmol/L (3.5-5.1); SGOT/AST 11 IU/L (3-35); SGPT/ALT 29 U/L (12-78); SODIUM 130 mmol/L (136-145); TOTAL PROTEIN 6.9 gm/dL (6.4-8.2)
[2020-07-06 20:18] LABS: BILIRUBIN Negative (Negative); BLOOD Negative (Negative); CLARITY Clear (Clear); COLOR Yellow (Yellow); GLUCOSE 3+ (Negative); KETONE 1+ (Negative); LEUKO ESTERASE Negative (Negative); NITRITE Negative (Negative); SPECIFIC GRAVITY >= 1.030 (1.001-1.030)
[2020-07-06 20:30] LABS: WBC 0-2 wbc/hpf (0-5)
[2020-07-06] MEDS ORDERED: NAPROXEN250 MG PO (22:31)
== END 2020-07-06 23:27 | disposition home or self-care (01) ==
LOC: ED 19:12
PROVIDERS: Internal Medicine
DX: E11.65 Type 2 diabetes mellitus with hyperglycemia (principal); F17.200 Nicotine dependence, unspecified, uncomplicated; Z91.018 Allergy to other foods; Z79.899 Other long term (current) drug therapy; Z79.4 Long term (current) use of insulin; Z79.82 Long term (current) use of aspirin

== ENCOUNTER → 2020-09-25 | Outpatient (CLI) | payer OTHER ==
[~2020-09-25] MED LIST changes: +NAPROXEN250 MG PO
[2020-09-25 13:11] LABS: BASO % 0.4 % (0.0-1.0); EOS # 0.3 10*3/uL (0.0-0.4); EOS % 3.5 % (1.0-4.0); HEMATOCRIT 46.6 % (42.0-52.0); LYMPH # 3.6 10*3/uL (1.3-4.4); LYMPH % 38.8 % (27.0-41.0); MEAN CELL VOLUME 81.8 fl (80.0-94.0); MEAN CORPUSCULAR HGB 29.1 pg (27.0-31.0); MEAN CORPUSCULAR HGB CONC 35.6 g/dl (33.0-37.0); MEAN PLATELET VOLUME 10.9 fl (9.6-12.3); MONO # 0.7 10*3/uL (0.1-1.0); NEUT # 4.7 10*3/uL (2.3-7.9); NEUT % 50.1 % (47.0-73.0); PLATELET COUNT AUTOMATED 187 10*3/uL (130-400); RED CELL DISTRI WIDTH 11.9 % (0-14.5); RETICULOCYTE % 1.34 % (0.50-2.50); WHITE BLOOD COUNT 9.4 10*3/uL (4.8-10.8)
[2020-09-25 13:44] LABS: ALBUMIN 3.7 gm/dl (3.1-4.5); ALKALINE PHOSPHATASE 168 U/L (45-117); BUN 10 mg/dl (7-24); CHLORIDE 99 mmol/L (98-107); CHOLESTEROL 124 mg/dL (<200); CPK 177 U/L (39-308); CREATININE 0.69 mg/dL (0.70-1.30); GAMMA GLUTAMYL TRANSPEPTIDASE 15 U/L (15-85); IRON 116 ug/dL (65-175); LDL CHOLESTEROL 48 mg/dL (9-159); POTASSIUM 3.8 mmol/L (3.5-5.1); SGOT/AST 10 IU/L (3-35); SGPT/ALT 22 U/L (12-78); SODIUM 132 mmol/L (136-145); T3 UPTAKE 32 % (31-39); THYROXINE (T4) TOTAL 9.7 ug/dl (4.5-12.1); TOTAL IRON BINDING CAPACITY 253 ug/dl (250-450); TOTAL PROTEIN 7.4 gm/dL (6.4-8.2); TRIGLYCERIDES 164 mg/dl (<150); URIC ACID 2.6 mg/dL (3.5-7.2)
[2020-09-25 13:48] LABS: FERRITIN 272.6 ng/mL (22.0-322.0); VITAMIN D, 25-HYDROXY 21.4 ng/mL (30-100)
[2020-09-26 07:06] LABS: RHEUMATOID ARTHRITIS FACTOR <10.0 IU/mL (0.0-13.9)
[2020-09-26 14:09] LABS: ANTI-DSDNA ANTIBODIES 6 IU/mL (0-9)
== END | disposition home or self-care (01) ==
LOC: LAB 12:45
PROVIDERS: ATTEND Family Medicine
DX: R53.83 Other fatigue (principal); R79.89 Other specified abnormal findings of blood chemistry; E78.5 Hyperlipidemia, unspecified; E10.9 Type 1 diabetes mellitus without complications; E55.9 Vitamin D deficiency, unspecified; R74.8 Abnormal levels of other serum enzymes

== ENCOUNTER 2021-02-11 14:15 | Emergency (ER) | payer OTHER ==
[~2021-02-11] VITALS: Ht 177.8 cm; Wt 93.4 kg
[2021-02-11 14:54] LABS: BILIRUBIN Negative (Negative); BLOOD Negative (Negative); CLARITY Clear (Clear); COLOR Yellow (Yellow); GLUCOSE 3+ (Negative); KETONE Negative (Negative); LEUKO ESTERASE Negative (Negative); NITRITE Negative (Negative); SPECIFIC GRAVITY >= 1.030 (1.001-1.030); UROBILINOGEN 0.2 E.U./dl (0.0-1.0)
[2021-02-11 15:01] LABS: BASO % 0.4 % (0.0-1.0); EOS # 0.1 10*3/uL (0.0-0.4); EOS % 1.4 % (1.0-4.0); HEMATOCRIT 45.2 % (42.0-52.0); LYMPH % 41.8 % (27.0-41.0); MEAN CELL VOLUME 82.2 fl (80.0-94.0); MEAN CORPUSCULAR HGB 28.9 pg (27.0-31.0); MEAN CORPUSCULAR HGB CONC 35.2 g/dl (33.0-37.0); MEAN PLATELET VOLUME 10.6 fl (9.6-12.3); MONO # 0.5 10*3/uL (0.1-1.0); MONO % 6.8 % (3.0-9.0); NEUT # 3.5 10*3/uL (2.3-7.9); NEUT % 49.3 % (47.0-73.0); PLATELET COUNT AUTOMATED 186 10*3/uL (130-400); RED CELL DISTRI WIDTH 12.5 % (0-14.5); WHITE BLOOD COUNT 7.2 10*3/uL (4.8-10.8)
[2021-02-11 15:17] LABS: BACTERIA TRACE
[2021-02-11 15:18] LABS: ACT PARTIAL THROMBO TIME 25.8 SECONDS (20.0-32.1)
[2021-02-11 15:19] LABS: ALBUMIN 3.4 gm/dl (3.1-4.5); ALKALINE PHOSPHATASE 169 U/L (45-117); BUN 6 mg/dl (7-24); CHLORIDE 99 mmol/L (98-107); CREATININE 0.91 mg/dL (0.70-1.30); LIPASE 102 U/L (73-393); POTASSIUM 3.5 mmol/L (3.5-5.1); SGOT/AST 23 IU/L (3-35); SGPT/ALT 87 U/L (12-78); SODIUM 134 mmol/L (136-145)
[2021-02-11 17:39] LABS: URINE AMPHETAMINES > 1000 (1000ng/ml); URINE BARBITURATES < 200 (200ng/ml); URINE BENZODIAZEPINES < 200 (200ng/ml); URINE CANNABINOIDS (THC) < 50 (50ng/ml); URINE COCAINE < 300 (300ng/ml); URINE METHADONE < 300 (300ng/ml); URINE OPIATES < 300 (300ng/ml); URINE PHENCYCLIDINE < 25 (25ng/ml)
== END 2021-02-11 21:43 ==
LOC: ED 14:15
PROVIDERS: Emergency Medicine
DX: E11.65 Type 2 diabetes mellitus with hyperglycemia (principal); F15.90 Other stimulant use, unspecified, uncomplicated; Z91.018 Allergy to other foods; Z79.899 Other long term (current) drug therapy; Z79.82 Long term (current) use of aspirin

== ENCOUNTER 2021-05-28 13:45 | Inpatient (IN) | payer OTHER ==
[~2021-05-28] VITALS: Ht 177.8 cm; Wt 66.7 kg
[2021-05-28 13:48] VITALS: BP 121/84
[2021-05-28 14:35] LABS: BASO % 0.3 % (0.0-1.0); EOS % 0.1 % (1.0-4.0); HEMATOCRIT 52.6 % (42.0-52.0); LYMPH % 12.8 % (27.0-41.0); MEAN CORPUSCULAR HGB 28.7 pg (27.0-31.0); MEAN CORPUSCULAR HGB CONC 34.6 g/dl (33.0-37.0); MEAN PLATELET VOLUME 10.5 fl (9.6-12.3); MONO # 0.4 10*3/uL (0.1-1.0); MONO % 2.6 % (3.0-9.0); NEUT # 13.1 10*3/uL (2.3-7.9); NEUT % 83.6 % (47.0-73.0); PLATELET COUNT AUTOMATED 247 10*3/uL (130-400); RED BLOOD COUNT 6.34 10*6/uL (4.50-5.90); RED CELL DISTRI WIDTH 12.7 % (0-14.5); WHITE BLOOD COUNT 15.7 10*3/uL (4.8-10.8)
[2021-05-28 14:46] LABS: ACT PARTIAL THROMBO TIME 28.5 SECONDS (20.0-32.1)
[2021-05-28 14:55] LABS: ALKALINE PHOSPHATASE 187 U/L (45-117); BUN 12 mg/dl (7-24); CHLORIDE 99 mmol/L (98-107); CREATININE 1.16 mg/dL (0.70-1.30); LIPASE 105 U/L (73-393); POTASSIUM 4.5 mmol/L (3.5-5.1); SGOT/AST 15 IU/L (3-35); SGPT/ALT 89 U/L (12-78); SODIUM 130 mmol/L (136-145); TOTAL PROTEIN 8.5 gm/dL (6.4-8.2)
[2021-05-28 16:20] VITALS: BP 115/81
[2021-05-28 16:40] LABS: ABG BASE EXCESS -16.4 mmol/L (-2.0-2.0); ARTERIAL BLOOD GAS PH 7.245 (7.35-7.45); ARTERIAL BLOOD GAS PO2 115.2 (80-90)
[2021-05-28] MEDS ORDERED: METFORMIN HYD1000 MG PO (17:41)
[2021-05-28] MEDS ORDERED: GABAPENTIN600 MG PO (17:43)
[2021-05-28] MEDS ORDERED: ATORVASTATIN CA20 M1 PO (17:45)
[2021-05-28] MEDS ORDERED: ZESTORETIC 10-1 EACH PO (17:47)
[2021-05-28] MEDS ORDERED: HUMULIN R500 UNIT/1 SQ (17:49)
[2021-05-28] MEDS ORDERED: HUMULIN 70100 UNIT/1 SQ (17:51)
[2021-05-28 19:03] LABS: BUN 12 mg/dl (7-24); CHLORIDE 106 mmol/L (98-107); CREATININE 0.99 mg/dL (0.70-1.30); SODIUM 133 mmol/L (136-145)
[2021-05-28 20:00] VITALS: BP 107/83
[2021-05-28 23:13] LABS: BUN 11 mg/dl (7-24); CHLORIDE 106 mmol/L (98-107); POTASSIUM 4.1 mmol/L (3.5-5.1); SODIUM 133 mmol/L (136-145)
[2021-05-29 00:02] VITALS: BP 118/66
[2021-05-29 01:24] LABS: BILIRUBIN Negative (Negative); BLOOD Negative (Negative); CLARITY Clear (Clear); COLOR Yellow (Yellow); GLUCOSE 3+ (Negative); KETONE 2+ (Negative); LEUKO ESTERASE Negative (Negative); NITRITE Negative (Negative); PH 5.5 (4.5-8.0); SPECIFIC GRAVITY >= 1.030 (1.001-1.030)
[2021-05-29 01:51] LABS: BACTERIA TRACE; RBC 0-2 rbc/hpf (0-2)
[2021-05-29 03:01] LABS: BUN 12 mg/dl (7-24); CHLORIDE 110 mmol/L (98-107); CREATININE 0.73 mg/dL (0.70-1.30); SODIUM 137 mmol/L (136-145)
[2021-05-29 03:02] LABS: POTASSIUM 3.1 mmol/L (3.5-5.1)
[2021-05-29 04:00] VITALS: BP 118/66
[2021-05-29 05:42] LABS: BUN 12 mg/dl (7-24); CHLORIDE 109 mmol/L (98-107); CHOLESTEROL 101 mg/dL (<200); CREATININE 0.59 mg/dL (0.70-1.30); POTASSIUM 3.3 mmol/L (3.5-5.1); SGOT/AST 8 IU/L (3-35); SGPT/ALT 53 U/L (12-78); SODIUM 137 mmol/L (136-145); TOTAL PROTEIN 6.1 gm/dL (6.4-8.2); TRIGLYCERIDES 101 mg/dl (<150)
[2021-05-29 05:44] LABS: ALKALINE PHOSPHATASE 119 U/L (45-117); LDL CHOLESTEROL 47 mg/dL (9-159)
[2021-05-29 06:19] LABS: BASO % 0.2 % (0.0-1.0); EOS # 0.2 10*3/uL (0.0-0.4); EOS % 1.2 % (1.0-4.0); HEMATOCRIT 43.3 % (42.0-52.0); LYMPH # 3.8 10*3/uL (1.3-4.4); LYMPH % 27.5 % (27.0-41.0); MEAN CELL VOLUME 80.3 fl (80.0-94.0); MEAN CORPUSCULAR HGB 28.4 pg (27.0-31.0); MEAN CORPUSCULAR HGB CONC 35.3 g/dl (33.0-37.0); MEAN PLATELET VOLUME 10.9 fl (9.6-12.3); MONO # 1.1 10*3/uL (0.1-1.0); MONO % 8.2 % (3.0-9.0); NEUT # 8.6 10*3/uL (2.3-7.9); NEUT % 62.5 % (47.0-73.0); PLATELET COUNT AUTOMATED 223 10*3/uL (130-400); RED BLOOD COUNT 5.39 10*6/uL (4.50-5.90); RED CELL DISTRI WIDTH 12.8 % (0-14.5); WHITE BLOOD COUNT 13.8 10*3/uL (4.8-10.8)
[2021-05-29 08:00] VITALS: BP 111/69
== END 2021-05-29 11:08 | disposition home or self-care (01) | DRG 420 ==
LOC: ED 13:45 → ICCU 15:21 → EDHOLD 15:21 → ICCU 15:55
PROVIDERS: Emergency Medicine; Internal Medicine; ADMIT Internal Medicine; ATTEND Internal Medicine
DX: E10.10 Type 1 diabetes mellitus with ketoacidosis without coma (principal); D75.1 Secondary polycythemia; R65.10 Systemic inflammatory response syndrome (SIRS) of non-infectious origin without acute organ dysfunction; I10 Essential (primary) hypertension; E55.9 Vitamin D deficiency, unspecified; Z91.02 Food additives allergy status; Z79.899 Other long term (current) drug therapy; Z83.3 Family history of diabetes mellitus

== ENCOUNTER 2021-09-24 19:37 | Inpatient (IN) | payer OTHER ==
[~2021-09-24] VITALS: Ht 177.8 cm; Wt 72.6 kg
[~2021-09-24 19:37] MED LIST changes: +ATORVASTATIN CA20 M1 PO; +GABAPENTIN600 MG PO; +HUMULIN 70100 UNIT/1 SQ; +HUMULIN R500 UNIT/1 SQ; +METFORMIN HYD1000 MG PO; +ZESTORETIC 10-1 EACH PO
[2021-09-24 19:44] VITALS: BP 150/90
[2021-09-24 20:43] LABS: BILIRUBIN Negative (Negative); BLOOD Trace-Lysed (Negative); CLARITY Clear (Clear); COLOR Yellow (Yellow); GLUCOSE 3+ (Negative); KETONE 4+ (Negative); LEUKO ESTERASE Negative (Negative); NITRITE Negative (Negative); SPECIFIC GRAVITY >= 1.030 (1.001-1.030); UROBILINOGEN 0.2 E.U./dl (0.0-1.0)
[2021-09-24 20:48] LABS: BASO # 0.1 10*3/uL (0.0-0.1); BASO % 0.4 % (0.0-1.0); EOS % 0.1 % (1.0-4.0); HEMATOCRIT 52.3 % (42.0-52.0); LYMPH # 2.1 10*3/uL (1.3-4.4); LYMPH % 11.9 % (27.0-41.0); MEAN CELL VOLUME 84.2 fl (80.0-94.0); MEAN CORPUSCULAR HGB 28.7 pg (27.0-31.0); MEAN PLATELET VOLUME 10.4 fl (9.6-12.3); MONO # 0.5 10*3/uL (0.1-1.0); MONO % 2.8 % (3.0-9.0); NEUT # 15.2 10*3/uL (2.3-7.9); PLATELET COUNT AUTOMATED 303 10*3/uL (130-400); RED BLOOD COUNT 6.21 10*6/uL (4.50-5.90); RED CELL DISTRI WIDTH 12.3 % (0-14.5); WHITE BLOOD COUNT 18.1 10*3/uL (4.8-10.8)
[2021-09-24 20:50] LABS: URINE AMPHETAMINES > 1000 (1000ng/ml); URINE BARBITURATES < 200 (200ng/ml); URINE BENZODIAZEPINES < 200 (200ng/ml); URINE CANNABINOIDS (THC) < 50 (50ng/ml); URINE COCAINE < 300 (300ng/ml); URINE METHADONE < 300 (300ng/ml); URINE OPIATES < 300 (300ng/ml)
[2021-09-24 20:53] LABS: BACTERIA 1+; EPITHELIAL CELLS 0-2; HYALINE CAST 0-2; RBC 0-2 rbc/hpf (0-2); WBC 0-2 wbc/hpf (0-5)
[2021-09-24 20:57] LABS: URINE PHENCYCLIDINE < 25 (25ng/ml)
[2021-09-24 21:03] LABS: ALKALINE PHOSPHATASE 207 U/L (45-117); BUN 17 mg/dl (7-24); CHLORIDE 102 mmol/L (98-107); CREATININE 1.06 mg/dL (0.70-1.30); POTASSIUM 5.9 mmol/L (3.5-5.1); SGOT/AST 28 IU/L (3-35); SGPT/ALT 103 U/L (12-78); SODIUM 128 mmol/L (136-145); TOTAL PROTEIN 8.4 gm/dL (6.4-8.2)
[2021-09-24 22:00] VITALS: BP 146/78
[2021-09-24 23:51] LABS: BUN 17 mg/dl (7-24); CHLORIDE 106 mmol/L (98-107); CREATININE 0.92 mg/dL (0.70-1.30); POTASSIUM 5.7 mmol/L (3.5-5.1); SODIUM 133 mmol/L (136-145)
[2021-09-25] VITALS: BP 136/44
[2021-09-25 03:49] LABS: BUN 15 mg/dl (7-24); CHLORIDE 112 mmol/L (98-107); CREATININE 0.85 mg/dL (0.70-1.30); SODIUM 138 mmol/L (136-145)
[2021-09-25 03:50] LABS: POTASSIUM 4.2 mmol/L (3.5-5.1)
[2021-09-25 04:00] VITALS: BP 133/58
[2021-09-25 06:07] LABS: HEMATOCRIT 44.1 % (42.0-52.0); MEAN CELL VOLUME 82.4 fl (80.0-94.0); MEAN CORPUSCULAR HGB 29.2 pg (27.0-31.0); MEAN CORPUSCULAR HGB CONC 35.4 g/dl (33.0-37.0); MEAN PLATELET VOLUME 10.5 fl (9.6-12.3); PLATELET COUNT AUTOMATED 247 10*3/uL (130-400); RED BLOOD COUNT 5.35 10*6/uL (4.50-5.90); RED CELL DISTRI WIDTH 12.3 % (0-14.5); WHITE BLOOD COUNT 22.7 10*3/uL (4.8-10.8)
[2021-09-25 06:08] LABS: ALKALINE PHOSPHATASE 136 U/L (45-117); BUN 15 mg/dl (7-24); CHLORIDE 114 mmol/L (98-107); CREATININE 0.77 mg/dL (0.70-1.30); POTASSIUM 3.8 mmol/L (3.5-5.1); SGOT/AST 17 IU/L (3-35); SGPT/ALT 72 U/L (12-78); SODIUM 138 mmol/L (136-145); TOTAL PROTEIN 6.4 gm/dL (6.4-8.2)
[2021-09-25 06:17] LABS: MANUAL DIFF REFLEX YES
[2021-09-25 06:34] LABS: ATYPICAL LYMPHS 2 % (0-0); PLATELET SUFFICIENCY NORMAL (NORMAL); TOTAL CELLS COUNTED 100 #CELLS
[2021-09-25 08:00] VITALS: BP 121/71
[2021-09-25 10:39] LABS: BUN 14 mg/dl (7-24); CHLORIDE 118 mmol/L (98-107); CREATININE 0.71 mg/dL (0.70-1.30); POTASSIUM 3.4 mmol/L (3.5-5.1); SODIUM 140 mmol/L (136-145)
[2021-09-25 12:00] VITALS: BP 113/66
[2021-09-25 14:44] LABS: BUN 16 mg/dl (7-24); CHLORIDE 111 mmol/L (98-107); CREATININE 0.56 mg/dL (0.70-1.30); POTASSIUM 4.1 mmol/L (3.5-5.1); SODIUM 134 mmol/L (136-145)
[2021-09-25 16:00] VITALS: BP 114/74
[2021-09-25 19:29] LABS: BUN 19 mg/dl (7-24); CHLORIDE 108 mmol/L (98-107); CREATININE 0.91 mg/dL (0.70-1.30); POTASSIUM 4.4 mmol/L (3.5-5.1); SODIUM 133 mmol/L (136-145)
== END 2021-09-25 19:30 | disposition left against medical advice (07) | DRG 420 ==
LOC: ED 19:37 → ICCU 21:32 → EDHOLD 21:32 → ICCU 21:44
PROVIDERS: Emergency Medicine; Internal Medicine; ADMIT Internal Medicine; ATTEND Internal Medicine
DX: E10.10 Type 1 diabetes mellitus with ketoacidosis without coma (principal); F15.10 Other stimulant abuse, uncomplicated; E87.1 Hypo-osmolality and hyponatremia; R65.10 Systemic inflammatory response syndrome (SIRS) of non-infectious origin without acute organ dysfunction; I10 Essential (primary) hypertension; E78.2 Mixed hyperlipidemia; D72.829 Elevated white blood cell count, unspecified; R74.01 Elevation of levels of liver transaminase levels; R79.89 Other specified abnormal findings of blood chemistry; E87.5 Hyperkalemia; E55.9 Vitamin D deficiency, unspecified; F17.210 Nicotine dependence, cigarettes, uncomplicated; S81.801A Unspecified open wound, right lower leg, initial encounter; Z53.29 Procedure and treatment not carried out because of patient's decision for other reasons; S81.802A Unspecified open wound, left lower leg, initial encounter; X58.XXXA Exposure to other specified factors, initial encounter; Y93.89 Activity, other specified; Y92.89 Other specified places as the place of occurrence of the external cause; Z71.6 Tobacco abuse counseling; Y99.8 Other external cause status; Z91.02 Food additives allergy status; Z83.3 Family history of diabetes mellitus; Z87.442 Personal history of urinary calculi; Z68.22 Body mass index [BMI] 22.0-22.9, adult

== ENCOUNTER 2021-10-02 06:25 | Inpatient (IN) | payer OTHER ==
[~2021-10-02] VITALS: Ht 177.8 cm; Wt 75.9 kg
[2021-10-02 06:29] VITALS: BP 123/79
[2021-10-02 06:38] LABS: BASO % 0.3 % (0.0-1.0); EOS # 0.1 10*3/uL (0.0-0.4); EOS % 0.4 % (1.0-4.0); HEMATOCRIT 47.3 % (42.0-52.0); LYMPH # 3.8 10*3/uL (1.3-4.4); LYMPH % 27.3 % (27.0-41.0); MEAN CELL VOLUME 80.7 fl (80.0-94.0); MEAN CORPUSCULAR HGB 28.7 pg (27.0-31.0); MEAN CORPUSCULAR HGB CONC 35.5 g/dl (33.0-37.0); MEAN PLATELET VOLUME 9.9 fl (9.6-12.3); MONO # 0.9 10*3/uL (0.1-1.0); NEUT # 9.2 10*3/uL (2.3-7.9); NEUT % 65.6 % (47.0-73.0); PLATELET COUNT AUTOMATED 331 10*3/uL (130-400); RED BLOOD COUNT 5.86 10*6/uL (4.50-5.90); RED CELL DISTRI WIDTH 12.6 % (0-14.5); WHITE BLOOD COUNT 14.1 10*3/uL (4.8-10.8)
[2021-10-02 07:01] LABS: ALKALINE PHOSPHATASE 148 U/L (45-117); BUN 18 mg/dl (7-24); CHLORIDE 98 mmol/L (98-107); POTASSIUM 4.7 mmol/L (3.5-5.1); SGOT/AST 20 IU/L (3-35); SGPT/ALT 57 U/L (12-78); SODIUM 129 mmol/L (136-145); TOTAL PROTEIN 7.2 gm/dL (6.4-8.2)
[2021-10-02 09:30] VITALS: BP 120/64
[2021-10-02 10:57] VITALS: BP 199/60
[2021-10-02 10:58] LABS: BUN 14 mg/dl (7-24); CHLORIDE 107 mmol/L (98-107); CREATININE 0.62 mg/dL (0.70-1.30); POTASSIUM 3.8 mmol/L (3.5-5.1); SODIUM 134 mmol/L (136-145)
[2021-10-02 11:00] VITALS: BP 109/65
[2021-10-02] MEDS ORDERED: IBU800 M2 PO (11:14)
[2021-10-02 14:36] LABS: BUN 14 mg/dl (7-24); CHLORIDE 105 mmol/L (98-107); CREATININE 0.73 mg/dL (0.70-1.30); POTASSIUM 3.5 mmol/L (3.5-5.1); SODIUM 134 mmol/L (136-145)
[2021-10-02 16:00] VITALS: BP 125/81
[2021-10-02 17:21] LABS: BILIRUBIN Negative (Negative); BLOOD Negative (Negative); CLARITY Clear (Clear); COLOR Yellow (Yellow); GLUCOSE 3+ (Negative); KETONE 1+ (Negative); LEUKO ESTERASE Negative (Negative); NITRITE Negative (Negative); PH 5.5 (4.5-8.0); SPECIFIC GRAVITY >= 1.030 (1.001-1.030); UROBILINOGEN 0.2 E.U./dl (0.0-1.0)
[2021-10-02 17:29] LABS: URINE AMPHETAMINES > 1000 (1000ng/ml); URINE BARBITURATES < 200 (200ng/ml); URINE BENZODIAZEPINES < 200 (200ng/ml); URINE CANNABINOIDS (THC) < 50 (50ng/ml); URINE COCAINE < 300 (300ng/ml); URINE METHADONE < 300 (300ng/ml); URINE OPIATES < 300 (300ng/ml)
[2021-10-02 17:34] LABS: URINE PHENCYCLIDINE < 25 (25ng/ml)
[2021-10-02 18:18] LABS: BACTERIA TRACE; EPITHELIAL CELLS 0-2; RBC 0-2 rbc/hpf (0-2); WBC 0-2 wbc/hpf (0-5)
[2021-10-02 18:27] LABS: BUN 16 mg/dl (7-24); CHLORIDE 108 mmol/L (98-107); CREATININE 0.69 mg/dL (0.70-1.30); POTASSIUM 3.5 mmol/L (3.5-5.1); SODIUM 133 mmol/L (136-145)
[2021-10-02 20:00] VITALS: BP 120/66
[2021-10-03] VITALS: BP 114/75
== END 2021-10-03 01:01 | disposition left against medical advice (07) | DRG 420 ==
LOC: ED 06:25 → ICCU 08:48 → EDHOLD 08:48 → ICCU 09:40
PROVIDERS: Internal Medicine; ADMIT Internal Medicine; ATTEND Internal Medicine
DX: E10.10 Type 1 diabetes mellitus with ketoacidosis without coma (principal); E87.1 Hypo-osmolality and hyponatremia; R65.10 Systemic inflammatory response syndrome (SIRS) of non-infectious origin without acute organ dysfunction; I10 Essential (primary) hypertension; E78.2 Mixed hyperlipidemia; D72.829 Elevated white blood cell count, unspecified; F17.210 Nicotine dependence, cigarettes, uncomplicated; E83.51 Hypocalcemia; Z53.29 Procedure and treatment not carried out because of patient's decision for other reasons; Z91.02 Food additives allergy status; Z83.3 Family history of diabetes mellitus; Z87.442 Personal history of urinary calculi

== ENCOUNTER 2021-12-11 11:25 | Emergency (ER) | payer OTHER ==
[~2021-12-11] VITALS: Ht 170.1 cm; Wt 78.0 kg
[~2021-12-11 11:25] MED LIST changes: +IBU800 M2 PO; +NOVOLOG FL100 UNIT/2 SC
[2021-12-11 11:48] LABS: BASO % 0.1 % (0.0-1.0); EOS # 0.1 10*3/uL (0.0-0.4); EOS % 0.6 % (1.0-4.0); HEMATOCRIT 36.8 % (42.0-52.0); LYMPH # 2.6 10*3/uL (1.3-4.4); LYMPH % 22.3 % (27.0-41.0); MEAN CELL VOLUME 82.9 fl (80.0-94.0); MEAN CORPUSCULAR HGB CONC 36.1 g/dl (33.0-37.0); MEAN PLATELET VOLUME 10.1 fl (9.6-12.3); MONO # 0.9 10*3/uL (0.1-1.0); MONO % 7.6 % (3.0-9.0); NEUT # 7.9 10*3/uL (2.3-7.9); NEUT % 69.1 % (47.0-73.0); PLATELET COUNT AUTOMATED 204 10*3/uL (130-400); RED BLOOD COUNT 4.44 10*6/uL (4.50-5.90); RED CELL DISTRI WIDTH 13.3 % (0-14.5); WHITE BLOOD COUNT 11.4 10*3/uL (4.8-10.8)
[2021-12-11 12:02] LABS: BUN 9 mg/dl (7-24); CHLORIDE 112 mmol/L (98-107); SODIUM 145 mmol/L (136-145)
[2021-12-11 12:06] LABS: ALKALINE PHOSPHATASE 108 U/L (45-117); CREATININE 0.54 mg/dL (0.70-1.30); SGOT/AST 14 IU/L (3-35); SGPT/ALT 38 U/L (12-78); TOTAL PROTEIN 6.1 gm/dL (6.4-8.2)
[2021-12-11 12:12] LABS: POTASSIUM 2.4 mmol/L (3.5-5.1)
== END 2021-12-11 17:17 | disposition home or self-care (01) ==
LOC: ED 11:25
PROVIDERS: Family Medicine
DX: E11.649 Type 2 diabetes mellitus with hypoglycemia without coma (principal); E87.6 Hypokalemia; E11.40 Type 2 diabetes mellitus with diabetic neuropathy, unspecified; F17.200 Nicotine dependence, unspecified, uncomplicated; Z79.82 Long term (current) use of aspirin; Z79.899 Other long term (current) drug therapy; Z90.89 Acquired absence of other organs; Z79.4 Long term (current) use of insulin; Z91.018 Allergy to other foods

== ENCOUNTER → 2022-04-10 | Outpatient (CLI) | payer OTHER ==
[2022-04-10 15:03] LABS: BASO % 0.3 % (0.0-1.0); EOS # 0.1 10*3/uL (0.0-0.4); EOS % 1.3 % (1.0-4.0); HEMATOCRIT 40.7 % (42.0-52.0); LYMPH % 32.9 % (27.0-41.0); MEAN CELL VOLUME 84.4 fl (80.0-94.0); MEAN CORPUSCULAR HGB 28.6 pg (27.0-31.0); MEAN CORPUSCULAR HGB CONC 33.9 g/dl (33.0-37.0); MEAN PLATELET VOLUME 10.5 fl (9.6-12.3); MONO # 0.4 10*3/uL (0.1-1.0); MONO % 6.5 % (3.0-9.0); NEUT # 3.6 10*3/uL (2.3-7.9); NEUT % 58.8 % (47.0-73.0); PLATELET COUNT AUTOMATED 174 10*3/uL (130-400); RED BLOOD COUNT 4.82 10*6/uL (4.50-5.90); RED CELL DISTRI WIDTH 13.8 % (0-14.5); RETICULOCYTE % 2.87 % (0.50-2.50)
[2022-04-10 15:16] LABS: BILIRUBIN Negative (Negative); BLOOD Negative (Negative); CLARITY Clear (Clear); COLOR Yellow (Yellow); GLUCOSE 3+ (Negative); KETONE Trace (Negative); LEUKO ESTERASE Negative (Negative); NITRITE Negative (Negative); SPECIFIC GRAVITY >= 1.030 (1.001-1.030)
[2022-04-10 15:30] LABS: ALKALINE PHOSPHATASE 102 U/L (46-116); BUN 10 mg/dl (9-23); CHLORIDE 104 mmol/L (98-107); CHOLESTEROL 129 mg/dL (<200); GAMMA GLUTAMYL TRANSPEPTIDASE 22 U/L (0-73); LDL CHOLESTEROL 64 mg/dL (9-159); SGPT/ALT 27 U/L (10-49); THYROID STIM HORMONE (HS) 2.274 uIU/ml (0.550-4.780); TOTAL PROTEIN 6.2 gm/dL (6.0-8.0); TRIGLYCERIDES 106 mg/dl (<150)
[2022-04-10 15:46] LABS: VITAMIN D, 25-HYDROXY 16.3 ng/mL (30-100)
[2022-04-10 17:18] LABS: EPITHELIAL CELLS 0-2; RBC 0-2 rbc/hpf (0-2)
== END | disposition home or self-care (01) ==
LOC: LAB 14:20
PROVIDERS: ATTEND Family Medicine
DX: E78.5 Hyperlipidemia, unspecified (principal); E55.9 Vitamin D deficiency, unspecified; R79.89 Other specified abnormal findings of blood chemistry; R53.83 Other fatigue; R74.8 Abnormal levels of other serum enzymes